=== PATIENT | female | born 1990 | race Caucasian/White ===

== ENCOUNTER 2024-09-05 02:59 | Emergency (ER) | payer MEDICAID, SELFPAY ==
[2024-09-05 03:00] VITALS: BMI 37.5
[2024-09-05 03:41] VITALS: BP 134/83; PULSE 113; RESP 18; TEMP 37.2; O2SAT 95
--- NOTE | 2024-09-05 03:57 | PD.EDRME ---
Rapid Medical Screening Exam RME Arrival date/time: 09/05/24 02:59 33M with history of DM (w/ last episode of DKA in 2018) and marijuana use presents to ED with several days of difficulty controlling BS, as well as dizziness and weakness. She states feels similar to DKA, but not quite there. Patient has also been getting over some URI. Chief Complaint: General Adult/Misc Complain Vital signs: Vital Signs Temperature 99.0 F 09/05/24 03:41 Pulse Rate 113 H 09/05/24 03:41 Respiratory Rate 18 09/05/24 03:41 Blood Pressure 134/83 H 09/05/24 03:41 Pulse Oximetry (%) 95 09/05/24 03:41 Oxygen Delivery Method Room Air 09/05/24 03:41
[2024-09-05 04:14] VITALS: BP 127/79; PULSE 114; RESP 18; TEMP 36.6; O2SAT 95
[2024-09-05 04:17] LABS: Collection Type, Urine Clean Catch
[2024-09-05 04:34] LABS: Amphetamine/Methamp Scrn,U Negative (Negative); Barbiturate Screen,Urine Negative (Negative); Benzodiazepines Screen,Urine Negative (Negative); Benzoylecgonine Screen, Ur Negative (Negative); Fentanyl Screen,Urine Negative (Negative); Opiate Screen,Urine Negative (Negative); THC Screen,Urine Negative (Negative)
[2024-09-05 04:40] LABS: Bilirubin,Urine Negative (Negative); Blood,Urine Negative (Negative); Clarity,Urine Clear (Clear/Hazy); Color,Urine Colorless (Lt Yel-Yel); Glucose, Urine 4+ (Negative); Ketones,Urine Negative (Negative); Leukocyte Esterase,Urine Negative (Negative); Nitrite,Urine Negative (Negative); PH,Urine 6.5 (5.0-7.0); Protein,Urine Negative (Neg - Trace); RBC,Urine 1 /hpf (0-3); Specific Gravity,Urine 1.026 (1.001-1.035); Squamous Epithelial Cell,Urine 1 /hpf (0-5); Urobilinogen,Urine Negative mg/dL (0.0-1.0); WBC,Urine < 1 /hpf (0-5)
[2024-09-05 04:53] LABS: HCG Qualitative,Urine Negative
[2024-09-05 05:19] LABS: Base Excess, Venous 3 (-3-3); Basophils % (Auto) 0 % (0-2.5); Eosinophils % (Auto) 0 % (0-10); Hematocrit 40.9 % (36.0-46.0); Hemoglobin 14.2 g/dL (12.0-16.0); Immature Granulocytes % (Auto) 2 % (0-0); Immature Granulocytes Auto 0.16 Thou/mm3 (0.00-0.00); Lymphocytes # (Auto) 3.5 Thou/mm3 (1.0-4.8); Lymphocytes % (Auto) 38 % (10-50); Mean Corpuscular HGB Conc 34.7 g/dl (31.0-37.0); Mean Corpuscular Hemoglobin 27.5 pg (25.0-35.0); Mean Corpuscular Volume 79 fL (80-100); Monocytes # (Auto) 0.9 Thou/mm3 (0.0-0.8); Monocytes % (Auto) 10 % (0-12); Neutrophils # (Auto) 4.7 Thou/mm3 (1.8-7.7); Neutrophils % (Auto) 51 % (37-80); Nucleated Red Blood Cell % 0 /100 WBC (0); O2 Saturation, Venous 86 % (96-97); PCO2, Venous 45 mmHg (36-56); PO2, Venous 48 mmHg (15-58); Platelet Count 220 Thou/mm3 (140-440); Red Blood Count 5.17 Miln/mm3 (4.00-5.20); White Blood Count 9.2 Thou/mm3 (3.6-11.0); pH, Venous 7.41 (7.33-7.66)
[2024-09-05 05:31] LABS: Beta Hydroxybutyrate 0.1 mmol/L (<0.6)
[2024-09-05 05:54] LABS: Alanine Aminotransferase 23 U/L (10-49); Albumin, Serum 4.6 gm/dL (3.5-5.0); Albumin/Globulin Ratio 1.6 (1.2-2.2); Alkaline Phosphatase 97 U/L (46-116); Anion Gap 8 (7-16); Aspartate Amino Transferase 13 U/L (0-34); BUN/Creatinine Ratio 14 Ratio (12-20); Bilirubin,Total 0.3 mg/dL (0.3-1.2); Blood Urea Nitrogen 13 mg/dL (9-23); Calcium 9.7 mg/dL (8.3-10.6); Calcium (Corrected) 9.7 mg/dL (8.5-10.1); Carbon Dioxide 25.4 mMol/L (20.0-31.0); Chloride 102 mMol/L (98-107); Creatinine (Component) 0.9 mg/dL (0.6-1.3); Estimated Creatinine Clearance 110.9 mL/min (>60); Globulin 2.9 gm/dL (2.3-3.5); Glucose 311 mg/dL (74-106); Lipase 45 U/L (12-53); Osmolality,Calculated 282 (275-295); Potassium 4.2 mMol/L (3.4-5.1); Sodium 135 mMol/L (136-145); Total Protein 7.5 gm/dL (5.7-8.2); eGFR > 60 See Note
[2024-09-05 08:19] VITALS: BP 167/93; PULSE 95; RESP 18; TEMP 36.8; O2SAT 98
--- NOTE | 2024-09-05 08:21 | PC.NURSE ---
Assumed care at this time, pt on stretcher, pt reports having a headache and bodyaches at this time, awaiting provider assessment. Call dumont in reach.
--- NOTE | 2024-09-05 08:29 | EDNOTE_ITS ---
ED General RME/HPI General Chief complaint: General Adult/Misc Complain Stated complaint: BLOOD SUGAR HIGH Time Seen by Provider: 09/05/24 08:22 Arrival date/time: 09/05/24 02:59 Limitations: no limitations RME / HPI RME / HPI narrative: 09/05/24 02:59 33M with history of DM (w/ last episode of DKA in 2018) and marijuana use presents to ED with several days of difficulty controlling BS, as well as dizziness and weakness. She states feels similar to DKA, but not quite there. Patient has also been getting over some URI. DR. COPELAND MAIN ED EVALUATION: 33 year old female, who is an insulin dependent diabetic presents to the Emergency Department having increasing difficulty controlling her blood sugars for the last week. She denies any recent illness. She notes, headache, and thirst as a result of her elevated blood sugars. She takes long acting insulin, 40 units in the morning and 65 units at nights. She also takes a sliding scale during the days. She denies any change in her diet, stress, or viability of insulin. She knows difficulty with controlling her blood sugar for quite some time where she is now in the process [facility] Fox. Her first intake visit is September 08. Related Data Home Medications ?Medication ?Instructions ?Recorded ?Confirmed albuterol sulfate 90 mcg/actuation 2 puff inhalation Q4H PRN SOB 12/21/20 03/20/22 aerosol inhaler insulin lispro 100 unit/mL 40 unit subcut TID 09/05/21 03/20/22 subcutaneous pen ([facility] SoloStar U-100 Insulin lispro) baclofen 20 mg tablet 20 mg PO BID 02/15/22 03/20/22 escitalopram oxalate 20 mg tablet 40 mg PO QDAY 02/15/22 03/20/22 (Lexapro) lamotrigine 25 mg tablet 25 tab PO QDAY 02/15/22 03/20/22 mirtazapine 15 mg tablet 15 mg PO HS 02/15/22 03/20/22 amlodipine 5 mg tablet 5 mg PO QDAY 02/21/22 03/20/22 sumatriptan succinate 100 mg tablet 100 mg PO QDAY PRN Headache 02/21/22 03/20/22 cetirizine 10 mg tablet 1 tab PO QDAY 03/20/22 03/20/22 gabapentin 800 mg tablet 800 mg PO TID 03/20/22 03/20/22 insulin glargine 100 unit/mL (3 1 ea subcut HS 03/20/22 03/20/22 mL) subcutaneous pen (Basaglar KwikPen U-100 Insulin) omeprazole 20 mg capsule,delayed 1 cap PO BID 03/20/22 03/20/22 release Previous Rx's ?Medication ?Instructions ?Recorded ibuprofen 800 mg tablet 800 mg PO TID PRN pain #30 tabs 12/19/21 insulin glargine [Basaglar KwikPen 80 unit subcut QAM 30 days #2,400 02/20/22 U-100 Insulin] units cephalexin 500 mg capsule 500 mg PO QID #21 caps 01/18/23 hydroxyzine pamoate 25 mg capsule 50 mg (2 x 25 mg) PO BID PRN 03/10/24 (Vistaril) anxiety #20 caps Allergies Allergy/AdvReac Type Severity Reaction Status Date / Time adhesive tape Allergy Severe Hives Verified 03/10/24 09:33 cefixime Allergy Severe Rash Verified 03/10/24 09:33 guaifenesin [From Mucinex] Allergy Severe throat Verified 03/10/24 09:33 swelling hydrocodone Allergy Severe Rash Verified 03/10/24 09:33 Penicillins Allergy Severe Rash Verified 03/10/24 09:33 prochlorperazine edisylate Allergy Severe STATES Verified 03/10/24 09:33 ALMOST HAVING SEIZURES promethazine HCl Allergy Severe STATES Verified 03/10/24 09:33 ALMOST HAD SEIZURE tramadol Allergy Severe Hives Verified 03/10/24 09:33 codeine Allergy Intermediate Rash Verified 03/10/24 09:33 metoclopramide AdvReac Severe Seizure Verified 03/10/24 09:33 Review of Systems Review of Systems Systems Reviewed: All systems reviewed, normal except as documented Narrative Review of Systems: GEN: No fever, no chills, no weight loss EYES: No discharge, no visual changes, no pain HEENT: No ear pain, no congestion, no sore throat PULM: No shortness of breath, no cough, no congestion CV: No chest pain, no dyspnea on exertion, no palpitations GI: No nausea, no vomiting, no diarrhea, no pain, no constipation : No frequency, no urgency and no dysuria MUSC/SKEL: No joint pain, no back pain SKIN: No rash PSYCH: No hallucinations, no depression HEME/LYMPH: No easy bleeding or bruising tendencies NEURO: No weakness, + headache Past Medical History Family History FAMILY HISTORY: Positive Family Psychiatric Problems and Family Respiratory Disorders; Negative Family Cardiac Disorders, Family Gastrointestinal Problems, Family Cancer, Family Surgery or Family Anesthesia Reaction Surgical History SURGICAL: Positive Eye Surgery, Oral Surgery, Abdominal Surgery, Hysterectomy, Tubal Ligation and Section; Negative Cardiac Surgery, Open Heart Surgery, Coronary Artery Bypass Graft, Valve Replacement, Vascular Surgery, Coronary Stent, Cardiac Catheterization, Pacemaker, Angiogram, Auto Implanted Cardiovert Defib, Carotid Endarterectomy, Endocrine Surgery, Thyroidectomy, Ear Surgery, Tympanostomy Tube, Nose Surgery, Tonsillectomy, Adenoidectomy, Cochlear Implant, Corneal Transplant, Throat Surgery, Tracheostomy, Gastric Bypass Surgery, Gastrostomy, Bowel Surgery, Nephrectomy, Transurethral Resection, Joint Replacement, Amputation, Open Reduction Internal Fixation, Arthroscopy, Neurologic Surgery, Brain Shunt, Mastectomy, Lumpectomy or Vasectomy Social History SMOKING STATUS: Never smoker SECOND HAND EXPOSURE: No SUBSTANCE USE: marijuana ALCOHOL: Never Past Medical History Comments PMH COMMENT: Insulin dependent diabetes ED Exam General Limitations: Present no limitations General appearance: Present alert and in no apparent distress Head Head exam: Present atraumatic Eye Eye exam: Present normal appearance, PERRL and EOMI ENT ENT exam: Present normal exam, normal oropharynx and mucous membranes moist Neck Neck exam: Present normal inspection, full ROM and trachea midline Chest Chest inspection: Present normal inspection and symmetric chest wall rise Respiratory Respiratory exam: Present normal lung sounds bilaterally Cardiovascular Cardiovascular exam: Present regular rate, normal rhythm and normal heart sounds Abdominal Exam Abdominal exam: Present soft and normal bowel sounds Extremities Exam Extremities exam: Present normal inspection and full ROM Back Exam Back exam: Present normal inspection and full ROM Neurological Exam Neurological exam: Present alert, oriented X3 and CN II-XII intact Psychiatric Psychiatric exam: Present normal affect and normal mood Skin Skin exam: Present warm, dry, intact and normal color Course Quality Measures none Orders Category Date Time Status Blood glucose [Bedside Blood Glucose] NOW Care 09/05/24 03:09 Completed Beta Hydroxybutyrate Stat Lab 09/05/24 05:13 Completed CBC Stat Lab 09/05/24 05:13 Completed CMP [Comprehensive Metabolic Panel] Stat Lab 09/05/24 05:13 Completed Drug Screen,Urine Stat Lab 09/05/24 04:00 Completed HCG Qualitative,Urine Stat Lab 09/05/24 04:00 Completed Lipase Stat Lab 09/05/24 05:13 Completed Urinalysis Stat Lab 09/05/24 04:00 Completed VBG [Venous Blood Gas] Stat Lab 09/05/24 05:13 Completed Acetaminophen Tab [Tylenol Tab] Med 09/05/24 08:23 Discontinued 650 mg PO X1 ONE DiphenhydrAMINE [Benadryl] Med 09/05/24 08:23 Discontinued 50 mg PO X1 ONE Insulin Regular Med 09/05/24 08:23 Discontinued 6 unit SC X1 ONE Reevaluation(s) Reevaluation #1: I discussed with her as she does not have DKA. She can receive some insulin, subcutaneous here, she is requesting insulin here before she leaves. Patient remains clinically stable throughout the emergency department visit. Re- assessment at the time of disposition demonstrates that the patient is in no acute distress. We reviewed all the results, analysis, and treatment plans. Patient is amenable to discharge. Strict return precautions were outlined. Patient was discharged in stable condition. Time: 08:50 Vital Signs Vital signs: Vital Signs Temperature 99.0 F 09/05/24 03:41 Pulse Rate 113 H 09/05/24 03:41 Respiratory Rate 18 09/05/24 03:41 Blood Pressure 134/83 H 09/05/24 03:41 Pulse Oximetry (%) 95 09/05/24 03:41 Oxygen Delivery Method Room Air 09/05/24 03:41 [facility] Patient data External records reviewed:: [facility] previous records (Reviewed last ED visit dated 04/15/24, discharged with the following: Hypoglycemia.) Clinical information provided by:: patient Social determinants that could affect healthcare access:: substance use (marijuana use) Patient has the following chronic illnesses:: Insulin dependent diabetes. How is presenting disease/condition affected by chronic disease/condition?: c aused by Evaluation data The following diagnostics were reviewed and interpreted by me:: lab results Lab and/or radiology exams considered but not ordered:: none Interpretation Summary: Hyperglycemia, blood glucose 311. Patient not in DKA. Medications Medications considered but not ordered:: none Medication administrations:: Medication Administration History Discontinued Medications Acetaminophen (Acetaminophen 325 Mg Tablet) 650 mg PO X1 ONE Stop: 09/05/24 08:24 Last Admin: 09/05/24 08:39 Dose: 650 mg Documented By: TM Diphenhydramine HCl (Diphenhydramine 25 Mg Capsule) 50 mg PO X1 ONE Stop: 09/05/24 08:24 Last Admin: 09/05/24 08:39 Dose: 50 mg Documented By: TM Insulin Human Regular (Insulin Hum Regular 1 Unit/0.01 Ml (Per Unit)) 6 unit SC X1 ONE Stop: 09/05/24 08:24 Last Admin: 09/05/24 08:39 Dose: 6 unit Documented By: NAHID Co-signed By: JOSH see above Consultations Consultation(s) initiated? (list below): No Diagnosis Differential Diagnosis ED Complaint MDM: Hyperglycemia, DKA, dehydration, electrolyte imbalance Most likely diagnosis given after review of the tests above:: Hyperglycemia Admission Indicated Admission indicated?: not indicated Explain why admission is indicated or not indicated:: Patient has no emergent abnormalities on his studies and can be managed on an outpatient basis. Admission Request Was there a request for admission?: No Disposition Plan Disposition Plan: Discharge Discharge Attestation Discharge Attestation: The patient and all family members were given an opportunity to ask questions and understood the discharge instructions. Discharge instructions specifically effects, indications for sooner follow up or return to the emergency department, and the expected course of current diagnosis. Patient condition: Stable Medical Decision Making MDM Narrative MDM Narrative: Jessica Bradley am scribing for and in the presence of Dr. Copeland. Differential Diagnosis Differential Diagnosis: Hyperglycemia, DKA, dehydration, electrolyte imbalance Lab Data 09/05/24 05:13 09/05/24 05:13 Labs: Lab Results 09/05/24 09/05/24 Range/Units 04:00 05:13 WBC 9.2 (3.6-11.0) Thou/mm3 RBC 5.17 (4.00-5.20) Miln/mm3 Hgb 14.2 (12.0-16.0) g/dL Hct 40.9 (36.0-46.0) % MCV 79 L (80-100) fL MCH 27.5 (25.0-35.0) pg MCHC 34.7 (31.0-37.0) g/dl RDW Std Deviation 37.0 (36.4-46.3) fL Plt Count 220 (140-440) Thou/mm3 Neut % (Auto) 51 (37-80) % Lymph % (Auto) 38 (10-50) % [place] % (Auto) 10 (0-12) % Eos % (Auto) 0 (0-10) % Baso % (Auto) 0 (0-2.5) % Neut # (Auto) 4.7 (1.8-7.7) Thou/mm3 Lymph # (Auto) 3.5 (1.0-4.8) Thou/mm3 [place] # (Auto) 0.9 H (0.0-0.8) Thou/mm3 Eos # (Auto) 0.0 (0.0-0.5) Thou/mm3 Baso # (Auto) 0.0 (0.0-0.2) Thou/mm3 Immature Gran # (Auto) 0.16 H (0.00-0.00) Thou/mm3 Absolute Nucleated RBC 0.00 (0.00-0.00) Thou/mm3 Immature Gran % 2 H (0-0) % Nucleated RBC % 0 (0) /100 WBC VBG pH 7.41 (7.33-7.66) VBG pCO2 45 (36-56) mmHg VBG pO2 48 (15-58) mmHg VBG O2 Sat ([place]) 86 L (96-97) % VBG Base Excess 3 (-3-3) Sodium 135 L (136-145) mMol/L Potassium 4.2 (3.4-5.1) mMol/L Chloride 102 (98-107) mMol/L Carbon Dioxide 25.4 (20.0-31.0) mMol/L Anion Gap 8 (7-16) BUN 13 (9-23) mg/dL Creatinine 0.9 (0.6-1.3) mg/dL Estim Creat Clear Calc 110.9 (>60) mL/min eGFR > 60 (60 - ) See Note BUN/Creatinine Ratio 14 (12-20) Ratio Glucose 311 H (74-106) mg/dL Calculated Osmolality 282 (275-295) Calcium 9.7 (8.3-10.6) mg/dL Corrected Calcium 9.7 (8.5-10.1) mg/dL Total Bilirubin 0.3 (0.3-1.2) mg/dL AST 13 (0-34) U/L ALT 23 (10-49) U/L Alkaline Phosphatase 97 (46-116) U/L Total Protein 7.5 (5.7-8.2) gm/dL Albumin 4.6 (3.5-5.0) gm/dL Globulin 2.9 (2.3-3.5) gm/dL Albumin/Globulin Ratio 1.6 (1.2-2.2) Lipase 45 (12-53) U/L Beta-Hydroxybutyrate/Acetoacetate 0.1 (<0.6) mmol/L Ur Collection Type Clean Catch Urine Color Colorless A (Lt Yel-Yel) Urine Clarity Clear (Clear/Hazy) Urine pH 6.5 (5.0-7.0) Ur Specific [place] 1.026 (1.001-1.035) Urine Protein Negative (Neg - Trace) Urine Glucose (UA) 4+ A (Negative) Urine Ketones Negative (Negative) Urine Blood Negative (Negative) Urine Nitrite Negative (Negative) Urine Bilirubin Negative (Negative) Urine Urobilinogen (Auto) Negative (0.0-1.0) mg/dL Ur Leukocyte Esterase Negative (Negative) Urine RBC 1 (0-3) /hpf Urine WBC < 1 (0-5) /hpf Ur Squamous Epith Cells 1 (0-5) /hpf Urine Bacteria None (None) Urine HCG, Qual Negative Urine Opiates Screen Negative (Negative) Urine Fentanyl Screen Negative (Negative) Ur Barbiturates Screen Negative (Negative) U Amphetamin/Meth Scrn Negative (Negative) U Benzodiazepines Scrn Negative (Negative) U Cocaine Metab Screen Negative (Negative) U Marijuana (THC) Screen Negative (Negative) Discharge Plan Plan Patient Disposition: HOME (Self Care) Prescriptions/Referrals Prescriptions/Med Rec: No Action ibuprofen 800 mg tablet 800 mg PO TID PRN (Reason: pain) Qty: 30 0RF sumatriptan succinate 100 mg tablet 100 mg PO QDAY PRN (Reason: Headache) amlodipine 5 mg Tablet 5 mg PO QDAY albuterol sulfate 90 mcg/actuation Hfa Aerosol Inhaler 2 puff INHALATION Q4H PRN (Reason: SOB) insulin lispro [[employer] SoloStar U-100 Insulin] 100 unit/mL Insulin Pen 40 unit SUBCUT TID lamotrigine 25 mg tablet 25 tab PO QDAY Patient Comments: TAKE 1 TABLET BY MOUTH EVERY DAY baclofen 20 mg Tablet 20 mg PO BID mirtazapine 15 mg Tablet 15 mg PO HS escitalopram oxalate [Lexapro] 20 mg Tablet 40 mg PO QDAY Insulin Glargine [Basaglar Kwikpen U-100 Insulin] 80 unit subcut QAM 30 Days Qty: 2400 1RF cetirizine 10 mg tablet 1 tab PO QDAY gabapentin 800 mg tablet 800 mg PO TID omeprazole 20 mg capsule,delayed release(DR/EC) 1 cap PO BID Patient Comments: TAKE 1 CAPSULE BY MOUTH TWICE A DAY insulin glargine [Basaglar KwikPen U-100 Insulin] 100 unit/mL (3 mL) insulin pen 1 ea SUBCUT HS Rx Instructions: 57 UNITS AT NIGHT cephalexin 500 mg capsule 500 mg PO QID Qty: 21 0RF Rx Instructions: Patient has been on cephalexin in the past. hydroxyzine pamoate [Vistaril] 25 mg capsule 50 mg PO BID PRN (Reason: anxiety) Qty: 20 0RF Referrals: Nash Hamilton MD [Primary Care Provider] - In 1 week Problem List Clinical Impression: Hyperglycemia Patient/Caregiver Discharge Instructions Education Materials: ED Diabetes with High Blood Sugar Additional Instructions: Drink plenty of water today and through the weekend. Continue with your normal insulin regimen through the weekend. You can follow-up with Dr. Hamilton as scheduled on Sunday. Feel free return to the emergency department sooner if symptoms worsen or if you notice any new, concerning issues. Print Language: Panamanian Stand Alone Forms: [facility] Award Info., Patient Portal Info Letter
[2024-09-05] MEDS: DiphenhydrAMINE 25 MG CAPSULE 50 MG PO (08:39)
[2024-09-05] MEDS: ACETAMINOPHEN 325 MG TABLET 650 MG PO (08:39)
[2024-09-05] MEDS: INSULIN HUM REGULAR 1 UNIT/0.01 ML (PER UNIT) 6 UNIT SC (08:39)
== END 2024-09-05 08:54 | disposition home or self-care (01) ==
PROVIDERS: Physician Assistant; Emergency Provider Emergency Medicine; PCP Family Medicine
DX: E11.65 Type 2 diabetes mellitus with hyperglycemia (principal)
CPT/HCPCS: 36415; 80053; 80307; 81001; 81025; 82010; 82803; 83690; 85025; 96372; 99283; J1815; A9270

== ENCOUNTER 2024-09-23 13:04 | Emergency (ER) | payer MEDICAID, SELFPAY ==
[2024-09-23 13:05] VITALS: BMI 37.5
[2024-09-23 13:44] VITALS: BP 130/84; PULSE 100; RESP 18; TEMP 36.9; O2SAT 99
--- NOTE | 2024-09-23 14:00 | EDNOTE_ITS ---
<Statement entered by Shruti Conrad MD - 09/25/24 15:28> As co-signing physician, I was present and available for consult prn. I concur with the plan and care as documented by the midlevel provider. ED Anxiety RME/HPI General Chief Complaint: Anxiety Stated Complaint: WANTS MEDS FOR ANXIETY Time Seen by Provider: 09/23/24 13:57 Arrival date/time: 09/23/24 13:04 33-year-old female well-known to me presents to the emergency department requesting medication for anxiety patient reports needs him to take the edge off patient reports that typically she takes Xanax 2 mg 3 times a day but does not have a prescription is waiting for prior authorization for new prescription Limitations: no limitations Related Data Home Medications ?Medication ?Instructions ?Recorded ?Confirmed albuterol sulfate 90 mcg/actuation 2 puff inhalation Q4H PRN SOB 12/21/20 03/20/22 aerosol inhaler insulin lispro 100 unit/mL 40 unit subcut TID 09/05/21 03/20/22 subcutaneous pen (Admelog SoloStar U-100 Insulin lispro) baclofen 20 mg tablet 20 mg PO BID 02/15/22 03/20/22 escitalopram oxalate 20 mg tablet 40 mg PO QDAY 02/15/22 03/20/22 (Lexapro) lamotrigine 25 mg tablet 25 tab PO QDAY 02/15/22 03/20/22 mirtazapine 15 mg tablet 15 mg PO HS 02/15/22 03/20/22 amlodipine 5 mg tablet 5 mg PO QDAY 02/21/22 03/20/22 sumatriptan succinate 100 mg tablet 100 mg PO QDAY PRN Headache 02/21/22 03/20/22 cetirizine 10 mg tablet 1 tab PO QDAY 03/20/22 03/20/22 gabapentin 800 mg tablet 800 mg PO TID 03/20/22 03/20/22 insulin glargine 100 unit/mL (3 1 ea subcut HS 03/20/22 03/20/22 mL) subcutaneous pen (Basaglar KwikPen U-100 Insulin) omeprazole 20 mg capsule,delayed 1 cap PO BID 03/20/22 03/20/22 release Previous Rx's ?Medication ?Instructions ?Recorded ibuprofen 800 mg tablet 800 mg PO TID PRN pain #30 tabs 12/19/21 insulin glargine [Basaglar KwikPen 80 unit subcut QAM 30 days #2,400 02/20/22 U-100 Insulin] units cephalexin 500 mg capsule 500 mg PO QID #21 caps 01/18/23 hydroxyzine pamoate 25 mg capsule 50 mg (2 x 25 mg) PO BID PRN 03/10/24 (Vistaril) anxiety #20 caps Allergies Allergy/AdvReac Type Severity Reaction Status Date / Time adhesive tape Allergy Severe Hives Verified 09/23/24 13:07 cefixime Allergy Severe Rash Verified 09/23/24 13:07 guaifenesin [From Mucinex] Allergy Severe throat Verified 09/23/24 13:07 swelling hydrocodone Allergy Severe Rash Verified 09/23/24 13:07 Penicillins Allergy Severe Rash Verified 09/23/24 13:07 prochlorperazine edisylate Allergy Severe STATES Verified 09/23/24 13:07 ALMOST HAVING SEIZURES promethazine HCl Allergy Severe STATES Verified 09/23/24 13:07 ALMOST HAD SEIZURE tramadol Allergy Severe Hives Verified 09/23/24 13:07 codeine Allergy Intermediate Rash Verified 09/23/24 13:07 metoclopramide AdvReac Severe Seizure Verified 09/23/24 13:07 Review of Systems Review of Systems Systems Reviewed: All systems reviewed, normal except as documented Constitutional Constitutional: Reports system reviewed and no additional complaints, except as documented, Denies fever(s) and Denies headache(s) Eyes Eyes: Reports system reviewed and no additional complaints, except as documented and Denies blurry vision ENT Ears, Nose, Mouth, and Throat: Reports system reviewed and no additional complaints, except as documented, Denies headache(s), Denies nasal congestion and Denies nasal discharge Cardiovascular Cardiovascular: Reports system reviewed and no additional complaints, except as documented, Denies chest pain and Denies dyspnea Respiratory Respiratory: Reports system reviewed and no additional complaints, except as documented, Denies chest congestion, Denies cough and Denies dyspnea Gastrointestinal Gastrointestinal: Reports system reviewed and no additional complaints, except as documented and Denies abdominal pain Integumentary/Breasts Skin/Breast: Reports system reviewed and no additional complaints, except as documented and Denies rash Neurologic Neurologic: Reports system reviewed and no additional complaints, except as documented, Reports as per HPI and Denies headache(s) Psychiatric Psychiatric: Reports system reviewed and no additional complaints, except as documented and Reports anxiety Past Medical History Past Medical History NEUROLOGIC: Positive Neurological Disorders, Seizures, Peripheral Neuropathy and Migraine; Negative Cerebrovascular Accident, Transient Ischemic Attacks (TIA), Dementia, Alzheimer's Disease, Parkinson's Disease, Brain Tumor, Meningitis, Epilepsy, Cerebral Palsy, Amyotrophic Lateral Sclerosis (ALS/Allison Gehrig's), Guillain-[place] Syndrome, Spina Bifida, Paralysis, Reyes's Palsy, Subdural Hematoma, Head Trauma, Spinal Cord Injury or Traumatic Brain Injury CARDIAC: Positive Cardiac Disorders and Hypertension; Negative Myocardial Infarction, Cardiac Arrhythmia, Atrial Fibrillation, Angina, Heart Murmur, Coronary Artery Disease, Atherosclerotic Heart Disease, Peripheral Vascular Disease, Hypercholesterolemia, Aneurysm, Congestive Heart Failure, Congenital Heart Disease, Valvular Heart Disease, Rheumatic Fever, Cardiomyopathy, Edema, Pericarditis, Cellulitis, Deep Vein Thrombosis, Hypotension or Varicose Veins RESPIRATORY: Positive Asthma, Bronchitis, Pneumonia and Pulmonary Embolism; Negative Chronic Obstructive Pulmonary Disease (COPD), Emphysema, Pulmonary Fibrosis, Cystic Fibrosis, Tuberculosis, Pulmonary Edema or Sleep Apnea GASTROINTESTINAL: Positive Gastrointestinal Disorders, Colitis, Hiatal Hernia, Hemorrhoids, Gastroesophageal Reflux Disease and Obesity; Negative Hepatitis, Cirrhosis, Pancreatitis, Celiac Disease, Gall Bladder Disease, Gastrointestinal Bleed, Esophageal Varices, King's Esophagus, Ulcerative Colitis, Diverticulitis, Diverticulosis, Ulcer, Colorectal Cancer, Irritable Bowel, Crohn's Disease or Obstructive Bowel GENITOURINARY: Positive Genitourinary Disorders; Negative Renal Disease, Kidney Stones, Polycystic Kidney Disease, Neurogenic Bladder, Inguinal Hernia, Dialysis or Benign Prostatic Hyperplasia REPRODUCTIVE: Positive Endometriosis and Previous Pregnancies; Negative Breast Cancer, Genital Herpes, Gonorrhea, Pelvic Inflammatory Disease, Syphilis or Uterine Prolapse MUSCULOSKELETAL: Positive Musculoskeletal Disorders, Carpal Tunnel Syndrome and Fractures; Negative Muscular Dystrophy, Myasthenia Gravis, Marfan's Syndrome, Bone Cancer, Arthritis, Rheumatoid Arthritis, Osteoporosis, Degenerative Disk Disease, Gout, Scoliosis, Fibromyalgia, Degenerative Joint Disease, Osteomyelitis or Poliovirus ENT: Negative Cataracts, Glaucoma, Blind, Retinal Detachment, Macular Degeneration, Ear Infection, Deafness, Head Trauma or Eye Prosthesis ENDOCRINE: Positive Endocrine Disorders, Diabetes Mellitus Type 2 and Hypoglycemia; Negative Diabetes Mellitus Type 1, Winfield's Syndrome, [place]ew[place]'s Disease, Hyperthyroidism, Hypothyroidism, Parathyroid Disease, Pituitary Disease, Systemic Lupus Erythematosus, Syndrome of Inappropriate Antidiuretic Hormone (SIADH), Adrenal Disease or Graves' Disease HEMATOLOGIC: Positive Clotting Problems; Negative Blood Disorders, Anemia, Leukemia, Hemophilia, Thalassemia or Sickle Cell Disease PSYCHO/SOCIAL: Positive Depression, Anxiety and Post Traumatic Stress Disorder; Negative Psychiatric Problems, Schizophrenia, Recreational Drug Use, Bipolar Disorder, Behavior Problems, Self-Mutilation, Attention Deficit Disorder, Attention Deficit Hyperactivity Disorder, Depression or Eating Disorder OTHER HISTORY: Positive Hospitalization, Falls and Chicken Pox; Negative Autoimmune Disease, Down Syndrome, Autism, Developmental Delay, Shingles, Blood Transfusions, Blood Transfusion Reaction, Anesthesia Reactions, Organ Transplant, Chemotherapy, Radiation Therapy, Hyperbaric Therapy, MRSA, VRSA, Vancomycin-Resistant Enterococci, Human Immunodeficiency Virus (HIV), Measles, Mumps, Rubella ([place]ian Measles), Pertussis, Clostridium Difficile, Cancer, Breast Cancer, Cervical Cancer, Colorectal Cancer, Lung Cancer or Ovarian Cancer Family History FAMILY HISTORY: Positive Family Psychiatric Problems and Family Respiratory D isorders; Negative Family Cardiac Disorders, Family Gastrointestinal Problems, Family Cancer, Family Surgery or Family Anesthesia Reaction Surgical History SURGICAL: Positive Eye Surgery, Oral Surgery, Abdominal Surgery, Hysterectomy, Tubal Ligation and Section; Negative Cardiac Surgery, Open Heart Surgery, Coronary Artery Bypass Graft, Valve Replacement, Vascular Surgery, Coronary Stent, Cardiac Catheterization, Pacemaker, Angiogram, Auto Implanted Cardiovert Defib, Carotid Endarterectomy, Endocrine Surgery, Thyroidectomy, Ear Surgery, Tympanostomy Tube, Nose Surgery, Tonsillectomy, Adenoidectomy, Cochlear Implant, Corneal Transplant, Throat Surgery, Tracheostomy, Gastric Bypass Surgery, Gastrostomy, Bowel Surgery, Nephrectomy, Transurethral Resection, Joint Replacement, Amputation, Open Reduction Internal Fixation, Arthroscopy, Neurologic Surgery, Brain Shunt, Mastectomy, Lumpectomy, Vasectomy or Organ Transplant Social History SMOKING STATUS: Never smoker SECOND HAND EXPOSURE: No SUBSTANCE USE: marijuana ED Exam General Limitations: Present no limitations General appearance: Present alert and in no apparent distress Head Head exam: Present atraumatic Eye Eye exam: Present normal appearance, PERRL and EOMI ENT ENT exam: Present normal exam, normal oropharynx and mucous membranes moist Neck Neck exam: Present normal inspection, full ROM and trachea midline Chest Chest inspection: Present normal inspection and symmetric chest wall rise Respiratory Respiratory exam: Present normal lung sounds bilaterally Cardiovascular Cardiovascular exam: Present regular rate, normal rhythm and normal heart sounds Abdominal Exam Abdominal exam: Present soft and normal bowel sounds Extremities Exam Extremities exam: Present normal inspection and full ROM Back Exam Back exam: Present normal inspection and full ROM Neurological Exam Neurological exam: Present alert, oriented X3, CN II-XII intact, normal gait and reflexes normal; Absent motor sensory deficit Psychiatric Psychiatric exam: Present normal affect and normal mood; Absent agitated, anxious, flat affect, manic, homicidal ideation or suicidal ideation Skin Skin exam: Present warm, dry, intact and normal color Course Quality Measures none Vital Signs Vital signs: Vital Signs Temperature 98.5 F 09/23/24 13:44 Pulse Rate 100 09/23/24 13:44 Respiratory Rate 18 09/23/24 13:44 Blood Pressure 130/84 09/23/24 13:44 Pulse Oximetry (%) 99 09/23/24 13:44 Oxygen Delivery Method Room Air 09/23/24 13:44 O2 saturation 99% room air within normal limits Anxiety MDM Narrative MDM Narrative: 33-year-old female well-known to me presents to the emergency department requesting medication for anxiety patient reports needs him to take the edge off patient reports that typically she takes Xanax 2 mg 3 times a day but does not have a prescription is waiting for prior authorization for new prescription Patient has mild anxiety at this time patient assures me she is not suicidal homicidal Patient given Xanax here and discharged home Patient struck to follow-up with PCP in order to follow-up on her prior authorization for her medication Patient data External records reviewed:: [facility] previous records Clinical information provided by:: patient Social determinants that could affect healthcare access:: mental health Patient has the following chronic illnesses:: See history How is presenting disease/condition affected by chronic disease/condition?: caused by Evaluation data The following diagnostics were reviewed and interpreted by me:: other (specify) (N/A) Lab and/or radiology exams considered but not ordered:: Consider not ordered Interpretation Summary: N/A Medications / Prescriptions Medications or Prescriptions considered but not ordered:: Given Medication administrations:: Given Consultations Consultation(s) initiated? (list below): No Diagnosis Differential diagnosis anxiety: hyperventilation, panic disorder and acute anxiety Most likely diagnosis given after review of the tests above:: Anxiety disorder Admission Indicated Admission indicated?: not indicated Admission Request Was there a request for admission?: No Disposition Plan Disposition Plan: Discharge Discharge Attestation Discharge Attestation: The patient and all family members were given an opportunity to ask questions and understood the discharge instructions. Discharge instructions specifically effects, indications for sooner follow up or return to the emergency department, and the expected course of current diagnosis. Patient condition: Stable Discharge Plan Plan Patient Disposition: HOME (Self Care) Disposition Comment: Stable Prescriptions/Referrals Prescriptions/Med Rec: No Action ibuprofen 800 mg tablet 800 mg PO TID PRN (Reason: pain) Qty: 30 0RF sumatriptan succinate 100 mg tablet 100 mg PO QDAY PRN (Reason: Headache) amlodipine 5 mg Tablet 5 mg PO QDAY albuterol sulfate 90 mcg/actuation Hfa Aerosol Inhaler 2 puff INHALATION Q4H PRN (Reason: SOB) insulin lispro [Admelog SoloStar U-100 Insulin] 100 unit/mL Insulin Pen 40 unit SUBCUT TID lamotrigine 25 mg tablet 25 tab PO QDAY Patient Comments: TAKE 1 TABLET BY MOUTH EVERY DAY baclofen 20 mg Tablet 20 mg PO BID mirtazapine 15 mg Tablet 15 mg PO HS escitalopram oxalate [Lexapro] 20 mg Tablet 40 mg PO QDAY Insulin Glargine [Basaglar Kwikpen U-100 Insulin] 80 unit subcut QAM 30 Days Qty: 2400 1RF cetirizine 10 mg tablet 1 tab PO QDAY gabapentin 800 mg tablet 800 mg PO TID omeprazole 20 mg capsule,delayed release(DR/EC) 1 cap PO BID Patient Comments: TAKE 1 CAPSULE BY MOUTH TWICE A DAY insulin glargine [Basaglar KwikPen U-100 Insulin] 100 unit/mL (3 mL) insulin pen 1 ea SUBCUT HS Rx Instructions: 57 UNITS AT NIGHT cephalexin 500 mg capsule 500 mg PO QID Qty: 21 0RF Rx Instructions: Patient has been on cephalexin in the past. hydroxyzine pamoate [Vistaril] 25 mg capsule 50 mg PO BID PRN (Reason: anxiety) Qty: 20 0RF Problem List Clinical Impression: Anxiety disorder Patient/Caregiver Discharge Instructions Education Materials: ED Anxiety Reaction Additional Instructions: Please follow up with your primary care doctor in the next 24-48hrs for any worsening symptoms return here immediately Please follow with your PCP for your regular psychiatric medication Print Language: New Zealander Stand Alone Forms: [facility] Award Info., Patient Portal Info Letter PA/EVIDENCE TECHNICIAN Supervising Physician PA/EVIDENCE TECHNICIAN Supervising Physician: Dr. CONRAD
[2024-09-23] MEDS: ALPRazoLAM 0.25 MG TABLET 2 MG PO (14:54)
== END 2024-09-23 14:57 | disposition home or self-care (01) ==
PROVIDERS: Emergency Provider Emergency Medicine; PCP Family Medicine
DX: F41.9 Anxiety disorder, unspecified (principal)
CPT/HCPCS: 99282; A9270

== ENCOUNTER 2024-10-01 20:25 | Emergency (ER) | payer MEDICAID, SELFPAY ==
[2024-10-01 20:33] VITALS: BP 134/70; PULSE 88; RESP 18; TEMP 37.1; O2SAT 99; BMI 36.5
--- NOTE | 2024-10-01 20:33 | XR_ITS ---
Examination: Ribs, left, with PA chest, 5 views Technique: Chest PA, RIBS AP, RPO, LPO, AP coned lower ribs 5 views Exam date and time: October 01, 20242037 hrs. Indications: Patient fell today with injury to the chest, left chest and rib pain Findings: Mild prominence left ventricle Parenchymal disease in the lingular segment obscuring detail left cardiac contour No pneumothorax No acute rib fractures Impression: No pneumothorax Recommend lateral chest view follow-up to exclude parenchymal disease in the lingular segment left upper lobe
--- NOTE | 2024-10-01 20:33 | XR_ITS ---
Examination: CT abdomen and pelvis without contrast. Coronal 3-D reconstructions. Sagittal 2-D reconstructions. Date and time of exam:October 01, 2024 2116 hrs. Comparison January 18, 2023 Indications: Patient fell today with injury to the abdomen, abdomen pain CTDI: vol (mGy): 12.61 DLP: (mGycm): 872 Technique: Axial images of the abdomen have been obtained, 3 mm slice thickness Intravenous contrast material has not been administered. Low dose protocols were performed. One or more of the following dose reduction techniques were used; automated exposure control, adjustment of the mA and/or KV according to patient size, use of iterative reconstruction technique. Findings: No pneumothorax Minimal pericardial effusion No liver splenic or renal laceration No perinephric hematoma No gallstones No pancreatic or adrenal mass Abdominal aorta intact, no free blood in the abdomen Suspicious for soft tissue contusion anterior right abdominal wall, axial image 128 Negative for pneumoperitoneum Normal appendix No bowel obstruction No diverticulitis Urinary bladder intact Absent uterus no lumbar vertebral bodies sacral segments hips appear intact Impression: No abdominal parenchymal laceration No perinephric hematoma Abdominal aorta intact No free blood in the abdomen or pelvis Mild anterior abdominal wall soft tissue contusion
--- NOTE | 2024-10-01 20:33 | PD.EDRME ---
Rapid Medical Screening Exam RME Arrival date/time: 10/01/24 20:25 34-year-old female with a history of type 1 diabetes presents to the emergency room with a chief complaint of abdominal distention, tenderness and left-sided rib pain after a fall that occurred this morning. Patient states the center for she has been having abdominal pain and abdominal distention. Patient also states she has nauseous and has vomited multiple times today. I have greeted and performed a focused initial assessment of this patient. A comprehensive ED assessment and evaluation of the patient, analysis of all test results, and completion of the medical decision making process will be conducted by additional ED providers. Chief Complaint: Abdominal Pain Time Seen by Provider: 10/01/24 20:33 Vital signs reviewed by provider: Yes
[2024-10-01] MEDS: ONDANSETRON ODT 4 MG TABRAP PO (21:08)
[2024-10-01 21:26] LABS: Basophils % (Auto) 0 % (0-2.5); Eosinophils % (Auto) 0 % (0-10); Hematocrit 38.6 % (36.0-46.0); Hemoglobin 13.5 g/dL (12.0-16.0); Immature Granulocytes % (Auto) 1 % (0-0); Immature Granulocytes Auto 0.06 Thou/mm3 (0.00-0.00); Lymphocytes # (Auto) 1.8 Thou/mm3 (1.0-4.8); Lymphocytes % (Auto) 22 % (10-50); Mean Corpuscular Hemoglobin 28.1 pg (25.0-35.0); Mean Corpuscular Volume 80 fL (80-100); Monocytes # (Auto) 0.7 Thou/mm3 (0.0-0.8); Monocytes % (Auto) 9 % (0-12); Neutrophils # (Auto) 5.5 Thou/mm3 (1.8-7.7); Neutrophils % (Auto) 68 % (37-80); Nucleated Red Blood Cell % 0 /100 WBC (0); Platelet Count 260 Thou/mm3 (140-440); RDW Standard Deviation 40.1 fL (36.4-46.3)
[2024-10-01 21:31] LABS: Collection Type, Urine Clean Catch
[2024-10-01 21:45] LABS: HCG Qualitative,Urine Negative
[2024-10-01 21:49] LABS: Alanine Aminotransferase 33 U/L (10-49); Albumin, Serum 4.7 gm/dL (3.5-5.0); Albumin/Globulin Ratio 1.6 (1.2-2.2); Alkaline Phosphatase 107 U/L (46-116); Anion Gap 11 (7-16); Aspartate Amino Transferase 26 U/L (0-34); BUN/Creatinine Ratio 14 Ratio (12-20); Bilirubin,Total 0.5 mg/dL (0.3-1.2); Blood Urea Nitrogen 15 mg/dL (9-23); Calcium 10.2 mg/dL (8.3-10.6); Calcium (Corrected) 10.2 mg/dL (8.5-10.1); Carbon Dioxide 22.9 mMol/L (20.0-31.0); Chloride 103 mMol/L (98-107); Creatinine (Component) 1.1 mg/dL (0.6-1.3); Estimated Creatinine Clearance 91.4 mL/min (>60); Lipase 30 U/L (12-53); Potassium 4.6 mMol/L (3.4-5.1); Sodium 137 mMol/L (136-145); Total Protein 7.7 gm/dL (5.7-8.2); eGFR > 60 See Note
[2024-10-01 21:49] LABS: Bacteria,Urine Rare; Bilirubin,Urine Negative (Negative); Blood,Urine Negative (Negative); Clarity,Urine Clear (Clear/Hazy); Color,Urine Colorless (Lt Yel-Yel); Glucose, Urine 4+ (Negative); Ketones,Urine Negative (Negative); Leukocyte Esterase,Urine Negative (Negative); Nitrite,Urine Negative (Negative); PH,Urine 5.5 (5.0-7.0); Protein,Urine Negative (Neg - Trace); RBC,Urine 1 /hpf (0-3); Specific Gravity,Urine 1.028 (1.001-1.035); Squamous Epithelial Cell,Urine 1 /hpf (0-5); Urobilinogen,Urine Negative mg/dL (0.0-1.0); WBC,Urine 1 /hpf (0-5)
[2024-10-01 22:09] LABS: Osmolality,Calculated 298 (275-295)
[2024-10-01 22:13] LABS: Glucose 523 mg/dL (74-106)
[2024-10-01 23:17] LABS: Beta Hydroxybutyrate 0.1 mmol/L (<0.6)
--- NOTE | 2024-10-02 00:32 | PC.NURSE ---
PT IN [facility] GAVE 65UNITS OF BASAGLAR AT 0000. AND DID NOT NOTIFY STAFF UNTIL BROUGHT BACK FOR ASSESSMENT BY NURSE.
[2024-10-02 00:48] VITALS: BP 149/86; PULSE 108; RESP 18; TEMP 36.7; O2SAT 97
--- NOTE | 2024-10-02 00:58 | PD.EDABDPN ---
ED Abdominal Pain RME/HPI General Chief Complaint: Abdominal Pain Stated complaint: tripped and fell in Abdomen Time seen by provider: 10/01/24 20:33 Arrival date/time: 10/01/24 20:25 Limitations: no limitations RME / HPI RME / HPI narrative: 10/01/24 20:25 34-year-old female with a history of type 1 diabetes presents to the emergency room with a chief complaint of abdominal distention, tenderness and left-sided rib pain after a fall that occurred this morning. Patient states the center for she has been having abdominal pain and abdominal distention. Patient also states she has nauseous and has vomited multiple times today. I have greeted and performed a focused initial assessment of this patient. A comprehensive ED assessment and evaluation of the patient, analysis of all test results, and completion of the medical decision making process will be conducted by additional ED providers. Dr. Tavrea's Main ED Evaluation: 34yo female with a history of DMI presents to the ED s/p fall this morning. Patient states she was getting out of her bed when she tripped over her shoe and fell forward on her abdomen. She states she hit her knee, but is more concerned over her abdomen due to having moderate generalized abdominal pain, reporting it feels hard , and left rib pain. She denies any head strikes or LOC. She denies any N/V, headache, neck pain or any other associted symptoms. Patient took ibuprofen this morning. Related Data Home Medications ?Medication ?Instructions ?Recorded ?Confirmed albuterol sulfate 90 mcg/actuation 2 puff inhalation Q4H PRN SOB 12/21/20 03/20/22 aerosol inhaler insulin lispro 100 unit/mL 40 unit subcut TID 09/05/21 03/20/22 [facility] Insulin lispro) baclofen 20 mg tablet 20 mg PO BID 02/15/22 03/20/22 escitalopram oxalate 20 mg tablet 40 mg PO QDAY 02/15/22 03/20/22 (Lexapro) lamotrigine 25 mg tablet 25 tab PO QDAY 02/15/22 03/20/22 mirtazapine 15 mg tablet 15 mg PO HS 02/15/22 03/20/22 amlodipine 5 mg tablet 5 mg PO QDAY 02/21/22 03/20/22 sumatriptan succinate 100 mg tablet 100 mg PO QDAY PRN Headache 02/21/22 03/20/22 cetirizine 10 mg tablet 1 tab PO QDAY 03/20/22 03/20/22 gabapentin 800 mg tablet 800 mg PO TID 03/20/22 03/20/22 insulin glargine 100 unit/mL (3 1 ea subcut HS 03/20/22 03/20/22 mL) subcutaneous pen (Basaglar KwikPen U-100 Insulin) omeprazole 20 mg capsule,delayed 1 cap PO BID 03/20/22 03/20/22 release Previous Rx's ?Medication ?Instructions ?Recorded ibuprofen 800 mg tablet 800 mg PO TID PRN pain #30 tabs 12/19/21 insulin glargine [Basaglar KwikPen 80 unit subcut QAM 30 days #2,400 02/20/22 U-100 Insulin] units cephalexin 500 mg capsule 500 mg PO QID #21 caps 01/18/23 hydroxyzine pamoate 25 mg capsule 50 mg (2 x 25 mg) PO BID PRN 03/10/24 (Vistaril) anxiety #20 caps Allergies Allergy/AdvReac Type Severity Reaction Status Date / Time adhesive tape Allergy Severe Hives Verified 09/23/24 13:07 cefixime Allergy Severe Rash Verified 09/23/24 13:07 guaifenesin [From Mucinex] Allergy Severe throat Verified 09/23/24 13:07 swelling hydrocodone Allergy Severe Rash Verified 09/23/24 13:07 Penicillins Allergy Severe Rash Verified 09/23/24 13:07 prochlorperazine edisylate Allergy Severe STATES Verified 09/23/24 13:07 ALMOST HAVING SEIZURES promethazine HCl Allergy Severe STATES Verified 09/23/24 13:07 ALMOST HAD SEIZURE tramadol Allergy Severe Hives Verified 09/23/24 13:07 codeine Allergy Intermediate Rash Verified 09/23/24 13:07 metoclopramide AdvReac Severe Seizure Verified 09/23/24 13:07 Review of Systems Review of Systems Systems Reviewed: All systems reviewed, normal except as documented ED Exam General Limitations: Present no limitations General appearance: Present alert and in no apparent distress Head Head exam: Present atraumatic Eye Eye exam: Present normal appearance, PERRL and EOMI ENT ENT exam: Present normal exam, normal oropharynx and mucous membranes moist Neck Neck exam: Present normal inspection, full ROM and trachea midline Chest Chest inspection: Present normal inspection and symmetric chest wall rise Respiratory Respiratory exam: Present normal lung sounds bilaterally Cardiovascular Cardiovascular exam: Present regular rate, normal rhythm and normal heart sounds Abdominal Exam Abdominal exam: Present soft and normal bowel sounds Extremities Exam Extremities exam: Present normal inspection and full ROM Back Exam Back exam: Present normal inspection and full ROM Neurological Exam Neurological exam: Present alert, oriented X3 and CN II-XII intact Psychiatric Psychiatric exam: Present normal affect and normal mood Skin Skin exam: Present warm, dry, intact and normal color Course Quality Measures none Orders Category Date Time Status CT abdomen pelvis wo con Stat Exams 10/01/24 20:33 Completed XR ribs LT min 3V w CXR1V Stat Exams 10/01/24 20:33 Completed Beta Hydroxybutyrate Stat Lab 10/01/24 22:24 Completed CBC Stat Lab 10/01/24 20:56 Completed CMP [Comprehensive Metabolic Panel] Stat Lab 10/01/24 20:56 Completed HCG Qualitative,Urine Stat Lab 10/01/24 20:55 Completed Lipase Stat Lab 10/01/24 20:56 Completed UA [Urinalysis] Stat Lab 10/01/24 20:55 Completed Urine Culture Stat Lab 10/01/24 20:55 Received Ketorolac Inj [Toradol Inj] Med 10/02/24 01:13 Discontinued 15 mg IM X1 ONE Ondansetron Odt [Zofran Odt] Med 10/01/24 20:33 Discontinued 4 mg PO X1 ONE Vital Signs Vital signs: Vital Signs Temperature 98.8 F 10/01/24 20:33 Pulse Rate 88 10/01/24 20:33 Respiratory Rate 18 10/01/24 20:33 Blood Pressure 134/70 H 10/01/24 20:33 Pulse Oximetry (%) 99 10/01/24 20:33 Oxygen Delivery Method Room Air 10/01/24 20:33 Pulse ox is 99% on room air, which is normal according to my interpretation. Abdominal Pain MDM Patient data External records reviewed:: [facility] previous records (Per chart review, patient was seen here on 09/23/24 for anxiety disorder.) Clinical information provided by:: patient Social determinants that could affect healthcare access:: none Patient has the following chronic illnesses:: DMI How is presenting disease/condition affected by chronic disease/condition?: uneffected by Evaluation data The following diagnostics were reviewed and interpreted by me:: lab results and radiology exam(s) Lab and/or radiology exams considered but not ordered:: none Interpretation Summary: CBC is normal, Glucose is elevated at 523, Anion Gap is normal, Lipase is normal, UA shows 4+ glucose, according to my interpretation. ----- [facility] Report Signed Patient: [facility]. Record#: [id number] Birthdate: 1990 Age/Sex: 34 / F Location: [facility] Attending Dr: Ordering Physician: Nikko Branch Date of Service: 10/01/24 Procedure(s): XR ribs LT min 3V w CXR1V Accession Number(s): [id number] cc: Nikko Branch; Joseph Soliz MD; Nash Hamilton MD~ Examination: Ribs, left, with PA chest, 5 views Technique: Chest PA, RIBS AP, RPO, LPO, AP coned lower ribs 5 views Exam date and time: October 01, 20242037 hrs. Indications: Patient fell today with injury to the chest, left chest and rib pain Findings: Mild prominence left ventricle Parenchymal disease in the lingular segment obscuring detail left cardiac contour No pneumothorax No acute rib fractures Impression: No pneumothorax Recommend lateral chest view follow-up to exclude parenchymal disease in the lingular segment left upper lobe Dictated By: Joseph Soliz MD Signed By: <Electronically signed by Joseph Soliz MD in [place]> 10/01/242106 -------- [facility] Report Signed Patient: [facility] DENTON [facility]. Record#: [id number] Birthdate: 1990 Age/Sex: 34 / F Location: [facility] Attending Dr: Ordering Physician: Nikko Branch Date of Service: 10/01/24 Procedure(s): CT abdomen pelvis wo con Accession Number(s): [id number] cc: Nikko Branch; Joseph Soliz MD; Nash Hamilton MD~ Examination: CT abdomen and pelvis without contrast. Coronal 3-D reconstructions. Sagittal 2-D reconstructions. Date and time of exam:October 01, 2024 2116 hrs. Comparison January 18, 2023 Indications: Patient fell today with injury to the abdomen, abdomen pain CTDI: vol (mGy): 12.61 DLP: (mGycm): 872 Technique: Axial images of the abdomen have been obtained, 3 mm slice thickness Intravenous contrast material has not been administered. Low dose protocols were performed. One or more of the following dose reduction techniques were used; automated exposure control, adjustment of the mA and/or KV according to patient size, use of iterative reconstruction technique. Findings: No pneumothorax Minimal pericardial effusion No liver splenic or renal laceration No perinephric hematoma No gallstones No pancreatic or adrenal mass Abdominal aorta intact, no free blood in the abdomen Suspicious for soft tissue contusion anterior right abdominal wall, axial image 128 Negative for pneumoperitoneum Normal appendix No bowel obstruction No diverticulitis Urinary bladder intact Absent uterus no lumbar vertebral bodies sacral segments hips appear intact Impression: No abdominal parenchymal laceration No perinephric hematoma Abdominal aorta intact No free blood in the abdomen or pelvis Mild anterior abdominal wall soft tissue contusion Dictated By: Joseph Soliz MD Signed By: <Electronically signed by Joseph Soliz MD in OV> 10/01/24 2148 Medications / Prescriptions Medications or Prescriptions considered but not ordered:: none Medication administrations:: Medication Administration History Discontinued Medications Ketorolac Tromethamine (Ketorolac Inj 60 Mg/2 Ml Vial) 15 mg IM X1 ONE Stop: 10/02/24 01:14 Last Admin: 10/02/24 01:22 Dose: 15 mg Documented By: LB Ondansetron HCl (Ondansetron Odt 4 Mg Tabrap) 4 mg PO X1 ONE; Protocol Stop: 10/01/24 20:34 Last Admin: 10/01/24 21:08 Dose: 4 mg Documented By: SF see above Consultations Consultation(s) initiated? (list below): No Diagnosis Differential diagnosis abdominal pain: other (contusion, rib fracture, intra-abdominal injurys) Most likely diagnosis given after review of the tests above:: see below Admission Indicated Admission indicated?: not indicated Admission Request Was there a request for admission?: No Disposition Plan Disposition Plan: Discharge Discharge Attestation Discharge Attestation: The patient and all family members were given an opportunity to ask questions and understood the discharge instructions. Discharge instructions specifically effects, indications for sooner follow up or return to the emergency department, and the expected course of current diagnosis. Patient condition: Stable Discharge Plan Plan Patient Disposition: HOME (Self Care) Patient condition on transfer: Stable Prescriptions/Referrals Prescriptions/Med Rec: No Action ibuprofen 800 mg tablet 800 mg PO TID PRN (Reason: pain) Qty: 30 0RF sumatriptan succinate 100 mg tablet 100 mg PO QDAY PRN (Reason: Headache) amlodipine 5 mg Tablet 5 mg PO QDAY albuterol sulfate 90 mcg/actuation Hfa Aerosol Inhaler 2 puff INHALATION Q4H PRN (Reason: SOB) insulin lispro [Admelog SoloStar U-100 Insulin] 100 unit/mL Insulin Pen 40 unit SUBCUT TID lamotrigine 25 mg tablet 25 tab PO QDAY Patient Comments: TAKE 1 TABLET BY MOUTH EVERY DAY baclofen 20 mg Tablet 20 mg PO BID mirtazapine 15 mg Tablet 15 mg PO HS escitalopram oxalate [Lexapro] 20 mg Tablet 40 mg PO QDAY Insulin Glargine [Basaglar Kwikpen U-100 Insulin] 80 unit subcut QAM 30 Days Qty: 2400 1RF cetirizine 10 mg tablet 1 tab PO QDAY gabapentin 800 mg tablet 800 mg PO TID omeprazole 20 mg capsule,delayed release(DR/EC) 1 cap PO BID Patient Comments: TAKE 1 CAPSULE BY MOUTH TWICE A DAY insulin glargine [Basaglar KwikPen U-100 Insulin] 100 unit/mL (3 mL) insulin pen 1 ea SUBCUT HS Rx Instructions: 57 UNITS AT NIGHT cephalexin 500 mg capsule 500 mg PO QID Qty: 21 0RF Rx Instructions: Patient has been on cephalexin in the past. hydroxyzine pamoate [Vistaril] 25 mg capsule 50 mg PO BID PRN (Reason: anxiety) Qty: 20 0RF Referrals: Nash Hamilton MD [Primary Care Provider] - In 1 week Problem List Clinical Impression: Abdominal wall contusion, Acute knee pain Patient/Caregiver Discharge Instructions Education Materials: Bruises (Contusions), ED PAUL Wrap, ED RICE Additional Instructions: Today your x-ray does not show that you have a fracture however can take 7 days of fracture troponin x-ray. If you are still having pain in 1 week you need to follow-up primary care for repeat x-ray. Wear the Paul bandage as directed for the next 2 to 3 days. Use the ice as directed for the next few days. Return to the emergency department for any worsening symptoms, or any other concerns. You can take [id number] Tylenol 650 mg 3 times a day for the next 3 to 5 days for pain. Print Language: [place] Stand Alone Forms: [facility] Award Info., Patient Portal Info Letter
--- NOTE | 2024-10-02 01:04 | PC.NURSE ---
Pt seen by Dr. Tavera. Pt c/o mild lt knee pain, small bruise to left knee noted. Pt denies any problem with ambulation. Will apply almas wrap and ice pack.
[2024-10-02] MEDS: KETOROLAC INJ 60 MG/2 ML VIAL 15 MG IM (01:22)
[2024-10-02 01:31] VITALS: BP 119/89; PULSE 106; RESP 18; TEMP 36.6; O2SAT 97
== END 2024-10-02 01:35 | disposition home or self-care (01) ==
PROVIDERS: Nurse Practitioner Family; Emergency Provider Emergency Medicine; PCP Family Medicine
DX: S30.1XXA Contusion of abdominal wall, initial encounter (principal); W01.190A Fall on same level from slipping, tripping and stumbling with subsequent striking against furniture, initial encounter; M25.562 Pain in left knee
CPT/HCPCS: 36415; 71101; 74176; 80053; 81001; 81025; 82010; 83690; 85025; 87086; 96372; 99284; J1885; Q0162

== ENCOUNTER 2025-02-03 14:39 | Emergency (ER) | payer MEDICAID, SELFPAY ==
[2025-02-03 14:41] VITALS: BP 134/81; PULSE 99; RESP 16; TEMP 36.8; O2SAT 95
[2025-02-03 14:50] VITALS: PULSE 98; RESP 18; O2SAT 97; BMI 34.9
--- NOTE | 2025-02-03 15:07 | PD.EDRME ---
Rapid Medical Screening Exam RME Arrival date/time: 02/03/25 14:39 34-year-old female with a history of type 1 diabetes, hypertension presents to the emergency room with a chief complaint of weakness, fatigue, elevated glucose 500. I have greeted and performed a focused initial assessment of this patient. A comprehensive ED assessment and evaluation of the patient, analysis of all test results, and completion of the medical decision making process will be conducted by additional ED providers. Chief Complaint: Recheck/Abnormal Lab/Rx Time Seen by Provider: 02/03/25 15:03 Vital signs: Vital Signs Temperature 98.2 F 02/03/25 14:41 Pulse Rate 99 02/03/25 14:41 Respiratory Rate 16 02/03/25 14:41 Blood Pressure 134/81 H 02/03/25 14:41 Pulse Oximetry (%) 95 02/03/25 14:41 Oxygen Delivery Method Room Air 02/03/25 14:41 Vital signs reviewed by provider: Yes
[2025-02-03 15:24] LABS: Base Excess, Venous 3 (-3-3); O2 Saturation, Venous 86 % (96-97); PCO2, Venous 41 mmHg (36-56); PO2, Venous 46 mmHg (15-58); pH, Venous 7.43 (7.33-7.66)
[2025-02-03 15:27] LABS: Basophils % (Auto) 0 % (0-2.5); Eosinophils % (Auto) 0 % (0-10); Hematocrit 38.1 % (36.0-46.0); Hemoglobin 13.4 g/dL (12.0-16.0); Immature Granulocytes % (Auto) 1 % (0-0); Immature Granulocytes Auto 0.06 Thou/mm3 (0.00-0.00); Lymphocytes # (Auto) 1.6 Thou/mm3 (1.0-4.8); Lymphocytes % (Auto) 19 % (10-50); Mean Corpuscular HGB Conc 35.2 g/dl (31.0-37.0); Mean Corpuscular Hemoglobin 27.9 pg (25.0-35.0); Mean Corpuscular Volume 79 fL (80-100); Monocytes # (Auto) 0.6 Thou/mm3 (0.0-0.8); Monocytes % (Auto) 7 % (0-12); Neutrophils % (Auto) 73 % (37-80); Nucleated Red Blood Cell % 0 /100 WBC (0); Platelet Count 227 Thou/mm3 (140-440); RDW Standard Deviation 40.1 fL (36.4-46.3); White Blood Count 8.2 Thou/mm3 (3.6-11.0)
[2025-02-03 15:28] LABS: Beta Hydroxybutyrate 0.2 mmol/L (<0.6)
[2025-02-03 15:52] LABS: Alanine Aminotransferase 22 U/L (10-49); Albumin, Serum 4.5 gm/dL (3.5-5.0); Albumin/Globulin Ratio 1.6 (1.2-2.2); Alkaline Phosphatase 113 U/L (46-116); Anion Gap 10 (7-16); Aspartate Amino Transferase 17 U/L (0-34); BUN/Creatinine Ratio 10 Ratio (12-20); Bilirubin,Total 0.6 mg/dL (0.3-1.2); Blood Urea Nitrogen 11 mg/dL (9-23); Carbon Dioxide 27.1 mMol/L (20.0-31.0); Chloride 98 mMol/L (98-107); Creatinine (Component) 1.1 mg/dL (0.6-1.3); Estimated Creatinine Clearance 89.4 mL/min (>60); Globulin 2.9 gm/dL (2.3-3.5); Osmolality,Calculated 295 (275-295); Potassium 4.5 mMol/L (3.4-5.1); Sodium 135 mMol/L (136-145); Total Protein 7.4 gm/dL (5.7-8.2); eGFR > 60 See Note
[2025-02-03 15:54] LABS: Glucose 561 mg/dL (74-106)
[2025-02-03] MEDS: SODIUM CHLORIDE 0.9% 1000 ML 1,000 ML 999 ML IV (16:29)
[2025-02-03] MEDS: ACETAMINOPHEN 500 MG TABLET 1000 MG PO (16:44)
--- NOTE | 2025-02-03 17:23 | XR_ITS ---
Examination: CT brain head without contrast. 2-D sagittal coronal reconstructions Date and time of exam:February 03, 2025 at 1728 hours Comparison August 11, 2022 INDICATIONS: High blood pressure with headache and weakness today CTDI: vol (mGy):50.7 DLP: (mGycm):1019 Technique: Multiple CT axial sections of the brain have been obtained, 5 mm slice thickness. Contrast has not been administered. 2-D sagittal, coronal reconstructions have been obtained Low dose protocols were performed. One or more of the following dose reduction techniques were used; automated exposure control, adjustment of the mA and/or KV according to patient size, use of iterative reconstruction technique. Findings: No significant ventricular enlargement. Intra-axial or extra-axial hemorrhage density is not seen. No mass effect or midline shift Basal cisterns are not remarkable. Fourth ventricle is midline. Cranial vault intact. Impression: Negative for acute hemorrhage, mass effect or midline shift
[2025-02-03 18:04] LABS: Collection Type, Urine Clean Catch
[2025-02-03] MEDS: INSULIN HUM REGULAR 1 UNIT/0.01 ML (PER UNIT) 10 UNIT IV (18:20)
[2025-02-03 18:24] LABS: Bacteria,Urine 1+; Bilirubin,Urine Negative (Negative); Blood,Urine Negative (Negative); Clarity,Urine Clear (Clear/Hazy); Color,Urine Colorless (Lt Yel-Yel); Glucose, Urine 4+ (Negative); Ketones,Urine Negative (Negative); Leukocyte Esterase,Urine Negative (Negative); Nitrite,Urine Negative (Negative); Protein,Urine Negative (Neg - Trace); RBC,Urine 1 /hpf (0-3); Specific Gravity,Urine 1.028 (1.001-1.035); Squamous Epithelial Cell,Urine 3 /hpf (0-5); Urobilinogen,Urine Negative mg/dL (0.0-1.0); WBC,Urine < 1 /hpf (0-5)
[2025-02-03 18:29] LABS: Culture Indicated,Urine Yes
[2025-02-03] MEDS: MORPHINE SULF INJ 10 MG/ML VIAL 5 MG IM (20:33)
--- NOTE | 2025-02-03 21:15 | PD.EDHA ---
ED Headache RME/HPI General Chief Complaint: Recheck/Abnormal Lab/Rx Stated Complaint: DIABETIC PROBLEMS Time Seen by Provider: 02/03/25 15:03 Source: patient Arrival date/time: 02/03/25 14:39 This is a case of 34-year-old female with history of type 1 diabetes hypertension came in in the emergency room due to frontal headache associated with generalized weakness fatigue and elevated glucose at home ranging 500 patient denies any polyuria polyphagia or polydipsia denies any chest pain numbness weakness tingling sensation incontinence to urine or stool Limitations: no limitations RME / HPI RME / HPI Narrative: 02/03/25 14:39 34-year-old female with a history of type 1 diabetes, hypertension presents to the emergency room with a chief complaint of weakness, fatigue, elevated glucose 500. I have greeted and performed a focused initial assessment of this patient. A comprehensive ED assessment and evaluation of the patient, analysis of all test results, and completion of the medical decision making process will be conducted by additional ED providers. Related Data Home Medications ?Medication ?Instructions ?Recorded ?Confirmed albuterol sulfate 90 mcg/actuation 2 puff inhalation Q4H PRN SOB 12/21/20 03/20/22 aerosol inhaler insulin lispro 100 unit/mL 40 unit subcut TID 09/05/21 03/20/22 subcutaneous pen (Admelog SoloStar U-100 Insulin lispro) baclofen 20 mg tablet 20 mg PO BID 02/15/22 03/20/22 escitalopram oxalate 20 mg tablet 40 mg PO QDAY 02/15/22 03/20/22 (Lexapro) lamotrigine 25 mg tablet 25 tab PO QDAY 02/15/22 03/20/22 mirtazapine 15 mg tablet 15 mg PO HS 02/15/22 03/20/22 amlodipine 5 mg tablet 5 mg PO QDAY 02/21/22 03/20/22 sumatriptan succinate 100 mg tablet 100 mg PO QDAY PRN Headache 02/21/22 03/20/22 cetirizine 10 mg tablet 1 tab PO QDAY 03/20/22 03/20/22 gabapentin 800 mg tablet 800 mg PO TID 03/20/22 03/20/22 insulin glargine 100 unit/mL (3 1 ea subcut HS 03/20/22 03/20/22 mL) subcutaneous pen (Basaglar KwikPen U-100 Insulin) omeprazole 20 mg capsule,delayed 1 cap PO BID 03/20/22 03/20/22 release Previous Rx's ?Medication ?Instructions ?Recorded ibuprofen 800 mg tablet 800 mg PO TID PRN pain #30 tabs 12/19/21 insulin glargine [Basaglar KwikPen 80 unit subcut QAM 30 days #2,400 02/20/22 U-100 Insulin] units cephalexin 500 mg capsule 500 mg PO QID #21 caps 01/18/23 hydroxyzine pamoate 25 mg capsule 50 mg (2 x 25 mg) PO BID PRN 03/10/24 (Vistaril) anxiety #20 caps sauzgyvskl-zdfnqplcsmdal-cuooybad 1 cap PO Q8H PRN pain #10 caps 02/03/25 50 mg-300 mg-40 mg capsule (Fioricet) ondansetron 4 mg disintegrating 4 mg PO Q8H #20 tabs 02/03/25 tablet Allergies Allergy/AdvReac Type Severity Reaction Status Date / Time adhesive tape Allergy Severe Hives Verified 02/03/25 14:50 cefixime Allergy Severe Rash Verified 02/03/25 14:50 guaifenesin (From Mucinex) Allergy Severe throat Verified 02/03/25 14:50 swelling hydrocodone Allergy Severe Rash Verified 02/03/25 14:50 Penicillins Allergy Severe Rash Verified 02/03/25 14:50 prochlorperazine edisylate Allergy Severe STATES Verified 02/03/25 14:50 ALMOST HAVING SEIZURES promethazine HCl Allergy Severe STATES Verified 02/03/25 14:50 ALMOST HAD SEIZURE tramadol Allergy Severe Hives Verified 02/03/25 14:50 codeine Allergy Intermediate Rash Verified 02/03/25 14:50 metoclopramide AdvReac Severe Seizure Verified 02/03/25 14:50 Review of Systems Review of Systems Systems Reviewed: All systems reviewed, normal except as documented Constitutional Constitutional: Reports system reviewed and no additional complaints, except as documented, Reports as per HPI, Denies chills, Reports fatigue, Denies fever(s), Denies frequent falls, Reports headache(s) and Reports weakness Eyes Eyes: Reports system reviewed and no additional complaints, except as documented, Reports as per HPI, Denies blurry vision, Denies change in vision, Denies decreased night vision, Denies diplopia, Denies eye discharge and Denies loss of vision ENT Ears, Nose, Mouth, and Throat: Reports system reviewed and no additional complaints, except as documented, Reports as per HPI, Denies abnormal hearing, Denies disequilibrium, Reports dizziness, Reports headache(s) and Reports vertigo Cardiovascular Cardiovascular: Reports system reviewed and no additional complaints, except as documented, Reports as per HPI, Denies chest pain, Denies dyspnea, Denies dyspnea on exertion, Denies edema, Denies leg edema and Denies syncope Respiratory Respiratory: Reports system reviewed and no additional complaints, except as documented, Reports as per HPI, Denies change in phlegm color, Denies chest congestion, Denies cough, Denies dyspnea and Denies dyspnea on exertion Gastrointestinal Gastrointestinal: Reports system reviewed and no additional complaints, except as documented, Reports as per HPI, Denies abdominal pain, Denies belching, Denies bloating, Denies change in bowel habits, Denies change in stool character, Denies nausea and Denies vomiting Genitourinary Genitourinary: Reports system reviewed and no additional complaints, except as documented, Reports as per HPI, Denies dysuria and Denies hematuria Musculoskeletal Musculoskeletal: Reports system reviewed and no additional complaints, except as documented, Reports as per HPI, Denies abnormal gait, Denies numbness and Denies tingling Neurologic Neurologic: Reports system reviewed and no additional complaints, except as documented, Reports as per HPI, Denies abnormal gait, Denies abnormal hearing, Denies abnormal movements, Denies abnormal speech, Denies behavioral changes, Denies burning sensations, Denies confusion, Denies convulsions, Denies disequilibrium, Reports dizziness, Denies localized weakness, Denies frequent falls, Reports headache(s), Denies lack of coordination, Denies loss of vision, Denies memory loss, Denies numbness, Denies other visual disturbances, Denies paresthesias, Denies radicular pain, Denies restless legs, Denies seizure-like activity, Denies sensory deficit, Denies syncope, Denies tingling, Denies tremor(s), Reports vertigo and Reports weakness Psychiatric Psychiatric: Denies behavioral changes, Denies confusion and Denies memory loss Endocrine Endocrine: Reports fatigue Past Medical History Past Medical History NEUROLOGIC: Positive Neurological Disorders, Seizures, Peripheral Neuropathy and Migraine; Negative Cerebrovascular Accident, Transient Ischemic Attacks (TIA), Dementia, Alzheimer's Disease, Parkinson's Disease, Brain Tumor, Meningitis, Epilepsy, Cerebral Palsy, Amyotrophic Lateral Sclerosis (ALS/Allison Gehrig's), Guillain-[place] Syndrome, Spina Bifida, Paralysis, Reyes's Palsy, Subdural Hematoma, Head Trauma, Spinal Cord Injury or Traumatic Brain Injury CARDIAC: Positive Cardiac Disorders and Hypertension; Negative Myocardial Infarction, Cardiac Arrhythmia, Atrial Fibrillation, Angina, Heart Murmur, Coronary Artery Disease, Atherosclerotic Heart Disease, Peripheral Vascular Disease, Hypercholesterolemia, Aneurysm, Congestive Heart Failure, Congenital Heart Disease, Valvular Heart Disease, Rheumatic Fever, Cardiomyopathy, Edema, Pericarditis, Cellulitis, Deep Vein Thrombosis, Hypotension or Varicose Veins RESPIRATORY: Positive Asthma, Bronchitis, Pneumonia and Pulmonary Embolism; Negative Chronic Obstructive Pulmonary Disease (COPD), Emphysema, Pulmonary Fibrosis, Cystic Fibrosis, Tuberculosis, Pulmonary Edema or Sleep Apnea GASTROINTESTINAL: Positive Gastrointestinal Disorders, Colitis, Hiatal Hernia, Hemorrhoids, Gastroesophageal Reflux Disease and Obesity; Negative Hepatitis, Cirrhosis, Pancreatitis, Celiac Disease, Gall Bladder Disease, Gastrointestinal Bleed, Esophageal Varices, King's Esophagus, Ulcerative Colitis, Diverticulitis, Diverticulosis, Ulcer, Colorectal Cancer, Irritable Bowel, Crohn's Disease or Obstructive Bowel GENITOURINARY: Positive Genitourinary Disorders; Negative Renal Disease, Kidney Stones, Polycystic Kidney Disease, Neurogenic Bladder, Inguinal Hernia, Dialysis or Benign Prostatic Hyperplasia REPRODUCTIVE: Positive Endometriosis and Previous Pregnancies; Negative Breast Cancer, Genital Herpes, Gonorrhea, Pelvic Inflammatory Disease, Syphilis or Uterine Prolapse MUSCULOSKELETAL: Positive Musculoskeletal Disorders, Carpal Tunnel Syndrome and Fractures; Negative Muscular Dystrophy, Myasthenia Gravis, Marfan's Syndrome, Bone Cancer, Arthritis, Rheumatoid Arthritis, Osteoporosis, Degenerative Disk Disease, Gout, Scoliosis, Fibromyalgia, Degenerative Joint Disease, Osteomyelitis or Poliovirus ENT: Negative Cataracts, Glaucoma, Blind, Retinal Detachment, Macular Degeneration, Ear Infection, Deafness, Head Trauma or Eye Prosthesis ENDOCRINE: Positive Endocrine Disorders, Diabetes Mellitus Type 2 and Hypoglycemia; Negative Diabetes Mellitus Type 1, [place]'s Syndrome, [place]'s Disease, Hyperthyroidism, Hypothyroidism, Parathyroid Disease, Pituitary Disease, Systemic Lupus Erythematosus, Syndrome of Inappropriate Antidiuretic Hormone (SIADH), Adrenal Disease or Graves' Disease HEMATOLOGIC: Positive Clotting Problems; Negative Blood Disorders, Anemia, Leukemia, Hemophilia, Thalassemia or Sickle Cell Disease PSYCHO/SOCIAL: Positive Depression, Anxiety and Post Traumatic Stress Disorder; Negative Psychiatric Problems, Schizophrenia, Recreational Drug Use, Bipolar Disorder, Behavior Problems, Self-Mutilation, Attention Deficit Disorder, Attention Deficit Hyperactivity Disorder, Depression or Eating Disorder OTHER HISTORY: Positive Hospitalization, Falls and Chicken Pox; Negative Autoimmune Disease, Down Syndrome, Autism, Developmental Delay, Shingles, Blood Transfusions, Blood Transfusion Reaction, Anesthesia Reactions, Organ Transplant, Chemotherapy, Radiation Therapy, Hyperbaric Therapy, MRSA, VRSA, Vancomycin-Resistant Enterococci, Human Immunodeficiency Virus (HIV), Measles, Mumps, Rubella (Beninese Measles), Pertussis, Clostridium Difficile, Cancer, Breast Cancer, Cervical Cancer, Colorectal Cancer, Lung Cancer or Ovarian Cancer Family History FAMILY HISTORY: Positive Family Psychiatric Problems and Family Respiratory Disorders; Negative Family Cardiac Disorders, Family Gastrointestinal Problems, Family Cancer, Family Surgery or Family Anesthesia Reaction Surgical History SURGICAL: Positive Eye Surgery, Oral Surgery, Abdominal Surgery, Hysterectomy, Tubal Ligation and Section; Negative Cardiac Surgery, Open Heart Surgery, Coronary Artery Bypass Graft, Valve Replacement, Vascular Surgery, Coronary Stent, Cardiac Catheterization, Pacemaker, Angiogram, Auto Implanted Cardiovert Defib, Carotid Endarterectomy, Endocrine Surgery, Thyroidectomy, Ear Surgery, Tympanostomy Tube, Nose Surgery, Tonsillectomy, Adenoidectomy, Cochlear Implant, Corneal Transplant, Throat Surgery, Tracheostomy, Gastric Bypass Surgery, Gastrostomy, Bowel Surgery, Nephrectomy, Transurethral Resection, Joint Replacement, Amputation, Open Reduction Internal Fixation, Arthroscopy, Neurologic Surgery, Brain Shunt, Mastectomy, Lumpectomy, Vasectomy or Organ Transplant Social History SMOKING STATUS: Never smoker SECOND HAND EXPOSURE: No SUBSTANCE USE: marijuana ED Exam General Limitations: Present no limitations General appearance: Present alert and in no apparent distress; Absent appears intoxicated, anxious, lethargic, obtunded or in distress Head Head exam: Present atraumatic Eye Eye exam: Present normal appearance, PERRL, EOMI and other (no pappiledema); Absent conjunctival injection, nystagmus, periorbital swelling or periorbital tenderness ENT ENT exam: Present normal exam, normal oropharynx, mucous membranes moist and TM's normal bilaterally Neck Neck exam: Present normal inspection, full ROM and trachea midline; Absent tenderness, meningismus, lymphadenopathy or thyromegaly Chest Chest inspection: Present normal inspection and symmetric chest wall rise Respiratory Respiratory exam: Present normal lung sounds bilaterally; Absent respiratory distress, wheezes, stridor, accessory muscle use or prolonged expiratory phase Cardiovascular Cardiovascular exam: Present regular rate, normal rhythm and normal heart sounds; Absent bradycardia, tachycardia, irregular rhythm, systolic murmur or diastolic murmur Abdominal Exam Abdominal exam: Present soft and normal bowel sounds; Absent distention, tenderness, guarding, rebound or rigidity Extremities Exam Extremities exam: Present normal inspection and full ROM Back Exam Back exam: Present normal inspection and full ROM Neurological Exam Neurological exam: Present alert, oriented X3, CN II-XII intact, normal gait and reflexes normal; Absent motor sensory deficit Expanded Neurological Exam Patient oriented to: Present person, place and time Cranial nerves: Normal: EOM function (II, III, IV, ), facial sensation (V), facial palsy (VII), gag reflex (IX), spinal accessory function (XI) and tongue deviation (XII) Cerebellar function: Normal: finger to nose and heel to sifuentes Cerebellar function: Present normal gait and Romberg normal Motor strength - LUE: 5/5 Motor strength - RUE: 5/5 Motor strength - LLE: 5/5 Motor strength - RLE: 5/5 Upper motor neuron exam: Normal: korin neglect, pronator drift, Babinski sign and sensory extinction Sensory exam upper extremity: Normal: light touch, pin prick, temperature and 2 point discrimination Sensory exam lower extremity: Normal: light touch, pin prick, temperature and 2 point discrimination DTR: 2+: biceps (L), biceps (R), patellar (L), patellar (R), Achilles tendon (L) and Achilles tendon (R) Psychiatric Psychiatric exam: Present normal affect and normal mood Skin Skin exam: Present warm, dry, intact and normal color Course Quality Measures none Orders Category Date Time Status Insert IV STAT Care 02/03/25 15:[address] head/brain wo con Stat Exams 02/03/25 17:23 Completed Beta Hydroxybutyrate Stat Lab 02/03/25 15:06 Completed CBC Stat Lab 02/03/25 15:06 Completed CMP [Comprehensive Metabolic Panel] Stat Lab 02/03/25 15:06 Completed UA, C/S IF [Urinalysis, C/S if Indicated] Stat Lab 02/03/25 17:23 Completed Urine Culture Stat Lab 02/03/25 17:23 Received Venous Blood Gas Stat Lab 02/03/25 15:06 Completed Acetaminophen Tab [Tylenol ES Tab] Med 02/03/25 16:31 Discontinued 1,000 mg PO X1 ONE Acetaminophen Tab [Tylenol ES Tab] Med 02/03/25 20:15 Discontinued 1,000 mg PO X1 ONE Insulin Regular Med 02/03/25 17:24 Discontinued 10 unit IV X1 ONE Morphine Inj Med 02/03/25 20:23 Discontinued 5 mg IM X1 ONE Ondansetron Inj [Zofran Inj] Med 02/03/25 15:06 Discontinued 4 mg IVP X1 ONE Sodium Chloride 0.9% 1000 ml [Ns] 1,000 ml Med 02/03/25 15:06 Discontinued IV 999 mls/hr Vital Signs Vital signs: Vital Signs Temperature 98.2 F 02/03/25 14:41 Pulse Rate 99 02/03/25 14:41 Respiratory Rate 16 02/03/25 14:41 Blood Pressure 134/81 H 02/03/25 14:41 Pulse Oximetry (%) 95 02/03/25 14:41 Oxygen Delivery Method Room Air 02/03/25 14:41 Oxygen saturation 95% in room air Headache MDM Narrative MDM Narrative:: This is a case of 34-year-old female with history of type 1 diabetes hypertension came in in the emergency room due to frontal headache associated with generalized weakness fatigue and elevated glucose at home ranging 500 patient denies any polyuria polyphagia or polydipsia denies any chest pain numbness weakness tingling sensation incontinence to urine or stool Physical examination patient is awake alert oriented not in distress nontoxic looking well-hydrated well-nourished with excellent skin turgor patient vital signs stable BP stable not tachycardic not tachypneic afebrile and nonhypoxic Patient eye exam EOM intact PERRL no pappiledema negative for meningeal sign heart and RRR no murmur lung sounds is clear no crackles no rales no retraction no stridor neurological exam is normal awake alert oriented x 4 no focal deficit GCS 15/15 no slurring of speech negative Romberg motor sensory reflexes are normal Patient blood test showed no leukocytosis no anemia patient is mildly hyponatremic 135 sodium normal potassium patient glucose noted to be 561 and anion gap is normal 10?the patient is not having DKA beta hydroxybutyrate is also negative venous blood gas is also normal urinalysis is also normal Patient was given a bolus of normal saline and 10 units of regular insulin IV for hyperglycemia patient blood sugar was reassessed and noted to be 251 patient headache is also treated CT scan showed unremarkable patient was given morphine patient verbalized that she is not allergy to this medication in spite of she is known to have allergy to hydrocodone in 30 minutes I reassessed the patient there is no allergic reaction there is no swelling there is no itching there is no shortness of breath after 30 minutes headache was resolved neurological exam is normal and unremarkable At this point patient will be discharged home with stable condition she will follow-up with his track sweeper for uncontrolled blood sugar and hyperglycemia she will also need to see a neurologist for her headache At this point I do not think patient is having TIA CVA meningitis sepsis or bacteremia I do not think the patient is also having DKA Hyperglycemia was also readily resolved the headache is also resolved thus patient can be discharged home in stable condition Patient was discharged with comfortable condition walking with stable gait. Patient verbalized no further complains explained diagnosis and answered patient question. Patient is comfortable with the proposed management plan including the need to follow up with his/her primary care physician and any specialist if applicable Discussed patient for any urgent condition or worsening sx, He/She needed to go to emergency room immediately or call 911. Patient acknowledge the responsibility to follow up as instructed and to monitor her/his symptoms. For any persistence of the symptoms for more than 3-5 days return precaution advised. Discussed the result of the test and was given printed discharge instruction Patient data External records reviewed:: [facility] previous records Clinical information provided by:: patient Social determinants that could affect healthcare access:: none Patient has the following chronic illnesses:: None How is presenting disease/condition affected by chronic disease/condition?: no chronic disease Evaluation data The following diagnostics were reviewed and interpreted by me:: lab results and radiology exam(s) Lab and/or radiology exams considered but not ordered:: Reviewed Interpretation Summary: Reviewed Medications / Prescriptions Medications or Prescriptions considered but not ordered:: Given Medication administrations:: Medication Administration History Discontinued Medications Acetaminophen (Acetaminophen 500 Mg Tablet) 1,000 mg PO X1 ONE Stop: 02/03/25 16:32 Last Admin: 02/03/25 16:44 Dose: 1,000 mg Documented By: GALA Acetaminophen (Acetaminophen 500 Mg Tablet) 1,000 mg PO X1 ONE Stop: 02/03/25 20:16 Last Admin: 02/03/25 20:27 Dose: Not Given Documented By: GALA Non-Admin Reason: Cancelled by Provider Sodium Chloride (Ns) 1,000 mls @ 999 mls/hr IV .Q1H1M ONE Stop: 02/03/25 16:06 Last Infusion: 02/03/25 16:35 Dose: Infused Documented By: Admin: 02/03/25 16:29 Dose: 999 mls/hr Documented By: FRANKI Insulin Human Regular (Insulin Hum Regular 1 Unit/0.01 Ml (Per Unit)) 10 unit IV X1 ONE Stop: 02/03/25 17:25 Last Admin: 02/03/25 18:20 Dose: 10 unit Documented By: KOBI Co-signed By: FRANKI Morphine Sulfate (Morphine Sulf Inj 10 Mg/Ml Vial) 5 mg IM X1 ONE Stop: 02/03/25 20:24 Last Admin: 02/03/25 20:33 Dose: 5 mg Documented By: GALA Ondansetron HCl (Ondansetron Inj 2 Mg/Ml Inj 2 Ml) 4 mg IVP X1 ONE; Protocol Stop: 02/03/25 15:07 Last Admin: 02/03/25 18:17 Dose: Not Given Documented By: FRANKI Non-Admin Reason: Patient Refused Given Consultations Consultation(s) initiated? (list below): No Diagnosis Differential diagnosis headache: migraine, tension headache, headache and sinusitis Most likely diagnosis given after review of the tests above:: Tension headache Admission Indicated Admission indicated?: not indicated Explain why admission is indicated or not indicated:: Not indicated Admission Request Was there a request for admission?: No Disposition Plan Disposition Plan: Discharge Discharge Attestation Discharge Attestation: The patient and all family members were given an opportunity to ask questions and understood the discharge instructions. Discharge instructions specifically effects, indications for sooner follow up or return to the emergency department, and the expected course of current diagnosis. Patient condition: Stable Discharge Plan Plan Patient Disposition: HOME (Self Care) Prescriptions/Referrals Prescriptions/Med Rec: New [id number] [Fioricet] 50-300-40 mg capsule 1 cap PO Q8H PRN (Reason: pain) Qty: 10 0RF ondansetron 4 mg tablet,disintegrating 4 mg PO Q8H Qty: 20 0RF No Action ibuprofen 800 mg tablet 800 mg PO TID PRN (Reason: pain) Qty: 30 0RF sumatriptan succinate 100 mg tablet 100 mg PO QDAY PRN (Reason: Headache) amlodipine 5 mg Tablet 5 mg PO QDAY albuterol sulfate 90 mcg/actuation Hfa Aerosol Inhaler 2 puff INHALATION Q4H PRN (Reason: SOB) insulin lispro [Admelog SoloStar U-100 Insulin] 100 unit/mL Insulin Pen 40 unit SUBCUT TID lamotrigine 25 mg tablet 25 tab PO QDAY Patient Comments: TAKE 1 TABLET BY MOUTH EVERY DAY baclofen 20 mg Tablet 20 mg PO BID mirtazapine 15 mg Tablet 15 mg PO HS escitalopram oxalate [Lexapro] 20 mg Tablet 40 mg PO QDAY Insulin Glargine [Basaglar Kwikpen U-100 Insulin] 80 unit subcut QAM 30 Days Qty: 2400 1RF cetirizine 10 mg tablet 1 tab PO QDAY gabapentin 800 mg tablet 800 mg PO TID omeprazole 20 mg capsule,delayed release(DR/EC) 1 cap PO BID Patient Comments: TAKE 1 CAPSULE BY MOUTH TWICE A DAY insulin glargine [Basaglar KwikPen U-100 Insulin] 100 unit/mL (3 mL) insulin pen 1 ea SUBCUT HS Rx Instructions: 57 UNITS AT NIGHT cephalexin 500 mg capsule 500 mg PO QID Qty: 21 0RF Rx Instructions: Patient has been on cephalexin in the past. hydroxyzine pamoate [Vistaril] 25 mg capsule 50 mg PO BID PRN (Reason: anxiety) Qty: 20 0RF Referrals: Miah Wilson MD [Primary Care Provider] - In 1 week Problem List Clinical Impression: Hyperglycemia, Headache Patient/Caregiver Discharge Instructions Education Materials: Self-Care for Headaches, ED Diabetes with High Blood Sugar Additional Instructions: Follow-up with your primary care physician in 2 days for reevaluation it is important to see your track sweeper for further evaluation and treatment of your uncontrolled blood sugar and hyperglycemia continue to take your medication for diabetes continue to monitor your blood sugar if your blood sugar greater than 250 or becomes symptomatic return to the emergency room immediately or call 911 it is also important to see neurologist for further evaluation and treatment of your headache keep hydrated increase water intake for any recurrence worsening symptoms or any emergent concern return to the emergency room immediately or call [phone] Print Language: Sudanese Stand Alone Forms: [employer] Award Info., Patient Portal Info Letter PA/PRODUCT CONSULTANT Supervising Physician PA/PRODUCT CONSULTANT Supervising Physician: dr [email or web address]
== END 2025-02-03 21:33 | disposition home or self-care (01) ==
PROVIDERS: Nurse Practitioner Family; Emergency Provider Emergency Medicine; PCP Student in an Organized Health Care Education/Training Program
DX: E10.65 Type 1 diabetes mellitus with hyperglycemia (principal); I10 Essential (primary) hypertension
CPT/HCPCS: 36415; 70450; 80053; 81001; 82010; 82803; 85025; 87086; 96372; 99284; J1815; J2270; J7030; A9270

== ENCOUNTER → 2025-02-13 | Outpatient (CLI) | payer MEDICAID, SELFPAY ==
--- NOTE | 2025-02-13 09:08 | XR_ITS ---
Exam: elbow bilateral, 6 views Technique: Elbow AP, oblique each elbow total 6 views Exam date and time: February 13, 2025 0912 hours INDICATIONS: Bilateral elbow pain beginning 3 months ago FINDINGS: No fracture or dislocation involving either elbow No elbow effusions No significant arthritic change IMPRESSION: No fracture or dislocation involving either elbow No erosive or other significant arthritic change involving either elbow.
--- NOTE | 2025-02-13 09:08 | XR_ITS ---
Examination: Bilateral hands, 6 views. Technique: AP, Oblique, Lateral each hand total 6 views Date and time of exam: February 13, 2025 0912 hours INDICATIONS: Bilateral hand pain beginning 3 months ago. FINDINGS: Mild osteopenia Mild diffuse narrowing joints of the wrist and hand bilaterally No erosive arthritis No fractures No cortical bone destruction No opaque foreign bodies IMPRESSION: Mild osteopenia Mild diffuse narrowing joints of the wrist and hand bilaterally
--- NOTE | 2025-02-13 09:08 | XR_ITS ---
Examination: Bilateral wrists 6 views TECHNIQUE: AP oblique lateral each wrist total 6 views Date and time: February 13, 2025 0923 hours INDICATIONS: Bilateral wrist pain 3 months. FINDINGS: Mild narrowing radiocarpal and intercarpal joints bilaterally No erosive arthritis No fractures involving either wrist No avascular necrosis IMPRESSION: Mild narrowing radiocarpal and metacarpal joints bilaterally
== END | disposition home or self-care (01) ==
PROVIDERS: PCP Student in an Organized Health Care Education/Training Program
DX: M85.842 Other specified disorders of bone density and structure, left hand (principal); M85.841 Other specified disorders of bone density and structure, right hand; M25.842 Other specified joint disorders, left hand; M25.841 Other specified joint disorders, right hand; M25.832 Other specified joint disorders, left wrist; M25.831 Other specified joint disorders, right wrist
CPT/HCPCS: 73080; 73110; 73130

== ENCOUNTER 2025-06-04 16:29 | Emergency (ER) | payer MEDICAID, SELFPAY ==
[2025-06-04 16:32] VITALS: BMI 34.4
[2025-06-04 16:52] VITALS: BP 137/86; PULSE 111; RESP 18; TEMP 37.7; O2SAT 95; BMI 34.4
--- NOTE | 2025-06-04 17:10 | XR_ITS ---
Examination: CT abdomen and pelvis without contrast. Coronal 3-D reconstructions. Sagittal 2-D reconstructions. Date and time of exam:June 04, 2025, 1901 hrs., Comparison October 01, 2024 Pelvic pain bilateral flank pain today CTDI: vol (mGy): 11.2 DLP: (mGycm): 706 Technique: Axial images of the abdomen have been obtained, 3 mm slice thickness Intravenous contrast material has not been administered. Low dose protocols were performed. One or more of the following dose reduction techniques were used; automated exposure control, adjustment of the mA and/or KV according to patient size, use of iterative reconstruction technique. Findings: Trace pericardial thickening Liver is irregular in contour, enlarged, 26 cm Splenomegaly, 19 cm Minimal perinephric stranding Mild cellulitis pattern in the anterior abdominal wall soft tissue axial image 102 No renal or ureteral calculi, no hydronephrosis Aorta normal size Normal appendix No bowel obstruction No bladder mass Absent uterus No adnexal mass Mild osteopenia Impression: Significant hepatosplenomegaly Minimal perinephric stranding No renal or ureteral calculi, no hydronephrosis Normal appendix No bladder mass or bladder calculi
--- NOTE | 2025-06-04 17:10 | PD.EDRME ---
Rapid Medical Screening Exam E Arrival date/time: 06/04/25 16:29 34-year-old female presents to the emergency dept today with abdominal pain, generalized body aches and headache patient reports elevated blood sugar this week Chief Complaint: Abdominal Pain Vital signs: Vital Signs Temperature 99.8 F 06/04/25 16:52 Pulse Rate 111 H 06/04/25 16:52 Respiratory Rate 18 06/04/25 16:52 Blood Pressure 137/86 H 06/04/25 16:52 Pulse Oximetry (%) 95 06/04/25 16:52 Oxygen Delivery Method Room Air 06/04/25 16:52
[2025-06-04 17:36] LABS: Base Excess, Venous 4 (-3-3); Basophils # (Auto) 0.0 Thou/mm3 (0.0-0.2); Basophils % (Auto) 0 % (0-2.5); Eosinophils # (Auto) 0.0 Thou/mm3 (0.0-0.5); Eosinophils % (Auto) 0 % (0-10); Hematocrit 40.2 % (36.0-46.0); Hemoglobin 13.7 g/dL (12.0-16.0); Immature Granulocytes Auto 0.09 Thou/mm3 (0.00-0.00); Lymphocytes # (Auto) 3.2 Thou/mm3 (1.0-4.8); Lymphocytes % (Auto) 28 % (10-50); Mean Corpuscular HGB Conc 34.1 g/dl (31.0-37.0); Mean Corpuscular Hemoglobin 28.5 pg (25.0-35.0); Mean Corpuscular Volume 84 fL (80-100); Monocytes # (Auto) 1.0 Thou/mm3 (0.0-0.8); Monocytes % (Auto) 9 % (0-12); Neutrophils # (Auto) 7.1 Thou/mm3 (1.8-7.7); Neutrophils % (Auto) 63 % (37-80); Nucleated Red Blood Cell # 0.00 Thou/mm3 (0.00-0.00); Nucleated Red Blood Cell % 0 /100 WBC (0); O2 Saturation, Venous 86 % (96-97); PCO2, Venous 48 mmHg (36-56); PO2, Venous 50 mmHg (15-58); Platelet Count 278 Thou/mm3 (140-440); RDW Standard Deviation 43.8 fL (36.4-46.3); Red Blood Count 4.80 Miln/mm3 (4.00-5.20); White Blood Count 11.4 Thou/mm3 (3.6-11.0); pH, Venous 7.40 (7.33-7.66)
[2025-06-04 17:42] LABS: Beta Hydroxybutyrate 0.1 mmol/L (<0.6)
[2025-06-04 17:54] LABS: Glucose Estimated Average 134 mg/dL (80-131); Hemoglobin A1C 6.3 % Hgb (4.8-6.0)
[2025-06-04 17:56] LABS: Alanine Aminotransferase 19 U/L (10-49); Albumin, Serum 4.8 gm/dL (3.5-5.0); Albumin/Globulin Ratio 1.7 (1.2-2.2); Alkaline Phosphatase 109 U/L (46-116); Anion Gap 13 (7-16); Aspartate Amino Transferase 18 U/L (0-34); BUN/Creatinine Ratio 7 Ratio (12-20); Bilirubin,Total 0.6 mg/dL (0.3-1.2); Blood Urea Nitrogen 7 mg/dL (9-23); Calcium 9.5 mg/dL (8.3-10.6); Calcium (Corrected) 9.5 mg/dL (8.5-10.1); Carbon Dioxide 28.1 mMol/L (20.0-31.0); Chloride 100 mMol/L (98-107); Creatinine (Component) 1.0 mg/dL (0.6-1.3); Estimated Creatinine Clearance 94.4 mL/min (>60); Globulin 2.8 gm/dL (2.3-3.5); Glucose 166 mg/dL (74-106); Lipase 26 U/L (12-53); Osmolality,Calculated 283 (275-295); Potassium 3.9 mMol/L (3.4-5.1); Sodium 141 mMol/L (136-145); Total Protein 7.6 gm/dL (5.7-8.2); eGFR > 60 See Note
[2025-06-04 18:13] LABS: Collection Type, Urine Clean Catch
[2025-06-04 18:32] LABS: Bacteria,Urine Rare; Bilirubin,Urine Negative (Negative); Blood,Urine Negative (Negative); Clarity,Urine Turbid (Clear/Hazy); Color,Urine Lt-Yellow (Lt Yel-Yel); Culture Indicated,Urine Not Indicated; Glucose, Urine 3+ (Negative); Ketones,Urine Negative (Negative); Leukocyte Esterase,Urine Positive (Negative); Nitrite,Urine Negative (Negative); PH,Urine 6.0 (5.0-7.0); Protein,Urine Negative (Neg - Trace); RBC,Urine 5 /hpf (0-3); Specific Gravity,Urine 1.016 (1.001-1.035); Squamous Epithelial Cell,Urine 8 /hpf (0-5); Urobilinogen,Urine Negative mg/dL (0.0-1.0); WBC,Urine 8 /hpf (0-5)
--- NOTE | 2025-06-04 18:40 | PC.NURSE ---
patient up to triage states she would like something for 10/10 pain to lower abdomen and head, new orders received from Desiree [facility] [employer]
[2025-06-04] MEDS: ONDANSETRON ODT 4 MG TABRAP PO (19:46)
[2025-06-04] MEDS: MORPHINE SULF INJ 4 MG/ML VIAL IM (19:46)
--- NOTE | 2025-06-04 20:27 | PD.EDHA ---
ED Headache RME/HPI General Chief Complaint: Abdominal Pain Stated Complaint: HIGH BG, WILSON, ABD PAIN, TYPE 1 DM Time Seen by Provider: 06/04/25 18:45 Arrival date/time: 06/04/25 16:29 RME / HPI RME / HPI Narrative: 34-year-old female presents to the emergency dept today with abdominal pain, generalized body aches and headache patient reports elevated blood sugar this week. Patient denies any vomiting denies any diarrhea denies any constipation denies any other complaints no medication was taken prior to ER visit. Related Data Home Medications ?Medication ?Instructions ?Recorded ?Confirmed albuterol sulfate 90 mcg/actuation 2 puff inhalation Q4H PRN SOB 12/21/20 03/20/22 aerosol inhaler insulin lispro 100 unit/mL 40 unit subcut TID 09/05/21 03/20/22 subcutaneous pen (Admelog SoloStar U-100 Insulin lispro) baclofen 20 mg tablet 20 mg PO BID 02/15/22 03/20/22 escitalopram oxalate 20 mg tablet 40 mg PO QDAY 02/15/22 03/20/22 (Lexapro) lamotrigine 25 mg tablet 25 tab PO QDAY 02/15/22 03/20/22 mirtazapine 15 mg tablet 15 mg PO HS 02/15/22 03/20/22 amlodipine 5 mg tablet 5 mg PO QDAY 02/21/22 03/20/22 sumatriptan succinate 100 mg tablet 100 mg PO QDAY PRN Headache 02/21/22 03/20/22 cetirizine 10 mg tablet 1 tab PO QDAY 03/20/22 03/20/22 gabapentin 800 mg tablet 800 mg PO TID 03/20/22 03/20/22 insulin glargine 100 unit/mL (3 1 ea subcut HS 03/20/22 03/20/22 mL) subcutaneous pen (Basaglar KwikPen U-100 Insulin) omeprazole 20 mg capsule,delayed 1 cap PO BID 03/20/22 03/20/22 release Previous Rx's ?Medication ?Instructions ?Recorded ibuprofen 800 mg tablet 800 mg PO TID PRN pain #30 tabs 12/19/21 insulin glargine [Basaglar KwikPen 80 unit subcut QAM 30 days #2,400 02/20/22 U-100 Insulin] units cephalexin 500 mg capsule 500 mg PO QID #21 caps 01/18/23 hydroxyzine pamoate 25 mg capsule 50 mg (2 x 25 mg) PO BID PRN 03/10/24 (Vistaril) anxiety #20 caps irveoauluu-pveqptwnlzvcz-nmsmfwoz 1 cap PO Q8H PRN pain #10 caps 02/03/25 50 mg-300 mg-40 mg capsule (Fioricet) ondansetron 4 mg disintegrating 4 mg PO Q8H #20 tabs 02/03/25 tablet Allergies Allergy/AdvReac Type Severity Reaction Status Date / Time adhesive tape Allergy Severe Hives Verified 06/04/25 16:32 cefixime Allergy Severe Rash Verified 06/04/25 16:32 guaifenesin (From Mucinex) Allergy Severe throat Verified 06/04/25 16:32 swelling hydrocodone Allergy Severe Rash Verified 06/04/25 16:32 Penicillins Allergy Severe Rash Verified 06/04/25 16:32 prochlorperazine edisylate Allergy Severe STATES Verified 06/04/25 16:32 ALMOST HAVING SEIZURES promethazine HCl Allergy Severe STATES Verified 06/04/25 16:32 ALMOST HAD SEIZURE tramadol Allergy Severe Hives Verified 06/04/25 16:32 codeine Allergy Intermediate Rash Verified 06/04/25 16:32 metoclopramide AdvReac Severe Seizure Verified 06/04/25 16:32 Review of Systems Review of Systems Narrative Review of Systems: Review of system reviewed and within normal limits except mentioned in HPI ED Exam Narrative Physical exam: VITAL SIGNS: Reviewed. GENERAL APPEARANCE: Alert and interactive, follows commands, no acute distress, HEAD AND FACE: Non-traumatic. ENT: PERRL, pink conjunctivitis, eyelid no trauma, Mucous membrane moist. NECK: Supple, nontender, no nuchal rigidity. CHEST: No tenderness, no crepitus, no paradoxical movement, no retractions. LUNGS: Clear, well ventilated, symmetric, no rales, no wheezing, no ronchi, no stridor, good breath sounds bilaterally. HEART: Regular rate, regular rhythm, no murmur, no gallops. ABDOMEN: Soft, positive bowel sounds, nondistended, no guarding, nontender, no rebound, no masses, RECTAL: Deferred. GENITAL: Deferred. NEUROLOGICAL: Gross motor function intact sensory function intact, Appropriate for age. MUSCULOSKELETAL: low back nontender, full range of motion. EXTREMITIES: Nontender, full range of motion. SKIN: Color pink, dry, no rash, no lacerations, no abrasions, no contusions. LYMPHATICS: Deferred. Course Quality Measures none Orders Category Date Time Status CT abdomen pelvis wo con Stat Exams 06/04/25 17:10 Completed A1C [Glycohemoglobin w (eAG)] Stat Lab 06/04/25 17:18 Completed Beta Hydroxybutyrate Stat Lab 06/04/25 17:18 Completed CBC Stat Lab 06/04/25 17:18 Completed Comprehensive Metabolic Panel Stat Lab 06/04/25 17:18 Completed Lipase Stat Lab 06/04/25 17:18 Completed UA, C/S IF [Urinalysis, C/S if Indicated] Stat Lab 06/04/25 18:05 Completed VBG [Venous Blood Gas] Stat Lab 06/04/25 17:18 Completed Morphine* Inj Med 06/04/25 18:48 Discontinued 4 mg IM X1 ONE Ondansetron Odt [Zofran Odt] Med 06/04/25 18:48 Discontinued 4 mg PO X1 ONE Vital Signs Vital signs: Vital Signs Temperature 99.8 F 06/04/25 16:52 Pulse Rate 111 H 06/04/25 16:52 Respiratory Rate 18 06/04/25 16:52 Blood Pressure 137/86 H 06/04/25 16:52 Pulse Oximetry (%) 95 06/04/25 16:52 Oxygen Delivery Method Room Air 06/04/25 16:52 Headache MDM Narrative MDM Narrative:: 34-year-old female presents to the emergency dept today with abdominal pain, generalized body aches and headache patient reports elevated blood sugar this week. Patient denies any vomiting denies any diarrhea denies any constipation denies any other complaints no medication was taken prior to ER visit. CT scan of the abdomen and pelvis, came back unremarkable. No further workup also came back normal patient's blood sugar today was noted to be 166 with no sign of diabetic ketoacidosis. Patient's urinalysis is contaminated. Hemoglobin A1c is 6.3. Results discussed with the patient, patient was given morphine IM, and Zofran, with complete resolution of symptoms. Patient stable for discharge home. Patient data External records reviewed:: None Clinical information provided by:: patient Social determinants that could affect healthcare access:: none Patient has the following chronic illnesses:: Diabetes mellitus, history of diabetic gastroparesis How is presenting disease/condition affected by chronic disease/condition?: exacerbated by Evaluation data The following diagnostics were reviewed and interpreted by me:: lab results and radiology exam(s) Lab and/or radiology exams considered but not ordered:: None Interpretation Summary: See results MDM Medications / Prescriptions Medications or Prescriptions considered but not ordered:: None Medication administrations:: Medication Administration History Discontinued Medications Morphine Sulfate (Morphine Sulf Inj 4 Mg/Ml Vial) 4 mg IM X1 ONE Stop: 06/04/25 18:49 Last Admin: 06/04/25 19:46 Dose: 4 mg Documented By: Ondansetron HCl (Ondansetron Odt 4 Mg Tabrap) 4 mg PO X1 ONE; Protocol Stop: 06/04/25 18:49 Last Admin: 06/04/25 19:46 Dose: 4 mg Documented By: Zofran and morphine Consultations Consultation(s) initiated? (list below): No Diagnosis Differential diagnosis headache: migraine, headache and other (Abdominal pain) Most likely diagnosis given after review of the tests above:: Headache, diabetic gastroparesis Admission Indicated Admission indicated?: not indicated Admission Request Was there a request for admission?: No Disposition Plan Disposition Plan: Discharge Discharge Attestation Discharge Attestation: The patient was given an opportunity to ask questions and understood the discharge instructions. Discharge instructions specifically effects, indications for sooner follow up or return to the emergency department, and the expected course of current diagnosis. Patient condition: Stable Discharge Plan Plan Patient Disposition: HOME (Self Care) Discharge Disposition comment: Stable Prescriptions/Referrals Prescriptions/Med Rec: No Action ibuprofen 800 mg tablet 800 mg PO TID PRN (Reason: pain) Qty: 30 0RF sumatriptan succinate 100 mg tablet 100 mg PO QDAY PRN (Reason: Headache) amlodipine 5 mg Tablet 5 mg PO QDAY albuterol sulfate 90 mcg/actuation Hfa Aerosol Inhaler 2 puff INHALATION Q4H PRN (Reason: SOB) insulin lispro [Admelog SoloStar U-100 Insulin] 100 unit/mL Insulin Pen 40 unit SUBCUT TID lamotrigine 25 mg tablet 25 tab PO QDAY Patient Comments: TAKE 1 TABLET BY MOUTH EVERY DAY baclofen 20 mg Tablet 20 mg PO BID mirtazapine 15 mg Tablet 15 mg PO HS escitalopram oxalate [Lexapro] 20 mg Tablet 40 mg PO QDAY Insulin Glargine [Basaglar Kwikpen U-100 Insulin] 80 unit subcut QAM 30 Days Qty: 2400 1RF cetirizine 10 mg tablet 1 tab PO QDAY gabapentin 800 mg tablet 800 mg PO TID omeprazole 20 mg capsule,delayed release(DR/EC) 1 cap PO BID Patient Comments: TAKE 1 CAPSULE BY MOUTH TWICE A DAY insulin glargine [Basaglar KwikPen U-100 Insulin] 100 unit/mL (3 mL) insulin pen 1 ea SUBCUT HS Rx Instructions: 57 UNITS AT NIGHT cephalexin 500 mg capsule 500 mg PO QID Qty: 21 0RF Rx Instructions: Patient has been on cephalexin in the past. hydroxyzine pamoate [Vistaril] 25 mg capsule 50 mg PO BID PRN (Reason: anxiety) Qty: 20 0RF gmzwtkcbne-exkswmiessytx-[id number] [Fioricet] 50-300-40 mg capsule 1 cap PO Q8H PRN (Reason: pain) Qty: 10 0RF ondansetron 4 mg tablet,disintegrating 4 mg PO Q8H Qty: 20 0RF Referrals: Yuridia Castorena FNP [Primary Care Provider] - In 1 week Problem List Clinical Impression: Diabetic gastroparesis associated with type 1 diabetes mellitus, Headache Patient/Caregiver Discharge Instructions Discharge Activity: activity as tolerated Education Materials: Healthy Meals for Diabetes Additional Instructions: Thank you for the opportunity for serving you today. You are stable for discharged . You are advised to: Follow-up with your PCP in 1 to 2 days Return to ED for worsening of symptoms Increase oral fluids Print Language: Luxembourgish Stand Alone Forms: [facility] Award Info., Patient Portal Info Letter MAGDA/PEE Supervising Physician MAGDA/PEE Supervising Physician: MD Cheri
== END 2025-06-04 20:31 | disposition home or self-care (01) ==
PROVIDERS: Nurse Practitioner Primary Care; Emergency Provider Emergency Medicine; PCP Student in an Organized Health Care Education/Training Program
DX: E10.43 Type 1 diabetes mellitus with diabetic autonomic (poly)neuropathy (principal); K31.84 Gastroparesis; R51.9 Headache, unspecified; Z79.4 Long term (current) use of insulin
CPT/HCPCS: 36415; 74176; 80053; 81001; 82010; 82803; 83036; 83690; 85025; 96372; 99284; J2270; Q0162

== ENCOUNTER 2025-07-18 21:41 | Emergency (ER) | payer MEDICAID, SELFPAY ==
[2025-07-18 21:43] VITALS: BMI 36.0
[2025-07-18 22:00] VITALS: BP 140/83; PULSE 117; RESP 20; TEMP 37.3; O2SAT 96
--- NOTE | 2025-07-18 22:04 | XR_ITS ---
EXAMINATION: PA chest single view TECHNIQUE: Upright PA chest single view Date and time: July,, 10 0 9:00 p.m., comparison October 01, 2024 INDICATIONS: Chest pain congestion coughing beginning 2 days ago. FINDINGS: Mild prominence left ventricle Reduced inspiratory effort No lobar pneumonia No pulmonary edema IMPRESSION: Poor inspiratory effort chest x-ray
[2025-07-18 22:52] LABS: Influenza A Ag Negative; Influenza B Ag Negative
== END 2025-07-18 23:35 | disposition home or self-care (01) ==
PROVIDERS: Nurse Practitioner Family; Emergency Provider Emergency Medicine; PCP Student in an Organized Health Care Education/Training Program
DX: Z53.21 Procedure and treatment not carried out due to patient leaving prior to being seen by health care provider (principal)
CPT/HCPCS: 71045; 87502; 87635; 99282

== ENCOUNTER 2025-09-07 12:11 | Emergency (ER) | payer MEDICAID, SELFPAY ==
[2025-09-07 12:29] VITALS: BP 139/85; PULSE 91; RESP 17; TEMP 36.6; O2SAT 98; BMI 36.8
--- NOTE | 2025-09-07 12:39 | PD.EDADULT ---
ED General RME/HPI General Chief complaint: Back Pain/Injury Stated complaint: PAIN IN LEGS/BACK, NAUCEOUS Time Seen by Provider: 09/07/25 12:37 Arrival date/time: 09/07/25 12:11 CC: Burning sensation to the thighs and hamstrings HPI ongoing for the past 3 days. No prior history of similar events. Patient denies any heavy lifting long running squats or any heavy activity that may precipitate this. Patient states pain was not relieved with gabapentin or home medications. Patient denies fever chest pain shortness of breath difficulty breathing painful urination bloody urination abdominal pain Related Data Home Medications ?Medication ?Instructions ?Recorded ?Confirmed albuterol sulfate 90 mcg/actuation 2 puff inhalation Q4H PRN SOB 12/21/20 03/20/22 aerosol inhaler insulin lispro 100 unit/mL 40 unit subcut TID 09/05/21 03/20/22 subcutaneous pen (Admelog SoloStar U-100 Insulin lispro) baclofen 20 mg tablet 20 mg PO BID 02/15/22 03/20/22 escitalopram oxalate 20 mg tablet 40 mg PO QDAY 02/15/22 03/20/22 (Lexapro) lamotrigine 25 mg tablet 25 tab PO QDAY 02/15/22 03/20/22 mirtazapine 15 mg tablet 15 mg PO HS 02/15/22 03/20/22 amlodipine 5 mg tablet 5 mg PO QDAY 02/21/22 03/20/22 sumatriptan succinate 100 mg tablet 100 mg PO QDAY PRN Headache 02/21/22 03/20/22 cetirizine 10 mg tablet 1 tab PO QDAY 03/20/22 03/20/22 gabapentin 800 mg tablet 800 mg PO TID 03/20/22 03/20/22 insulin glargine 100 unit/mL (3 1 ea subcut HS 03/20/22 03/20/22 mL) subcutaneous pen (Basaglar KwikPen U-100 Insulin) omeprazole 20 mg capsule,delayed 1 cap PO BID 03/20/22 03/20/22 release Previous Rx's ?Medication ?Instructions ?Recorded ibuprofen 800 mg tablet 800 mg PO TID PRN pain #30 tabs 12/19/21 insulin glargine [Basaglar KwikPen 80 unit subcut QAM 30 days #2,400 02/20/22 U-100 Insulin] units cephalexin 500 mg capsule 500 mg PO QID #21 caps 01/18/23 hydroxyzine pamoate 25 mg capsule 50 mg (2 x 25 mg) PO BID PRN 03/10/24 (Vistaril) anxiety #20 caps [id number] 1 cap PO Q8H PRN pain #10 caps 02/03/25 50 mg-300 mg-40 mg capsule (Fioricet) ondansetron 4 mg disintegrating 4 mg PO Q8H #20 tabs 02/03/25 tablet albuterol sulfate 90 mcg/actuation 2 puff inhalation Q4H PRN 07/18/25 aerosol inhaler (Ventolin HFA) shortness of breath or wheezing #8.5 grams albuterol sulfate 90 mcg/actuation 2 puff inhalation Q4H PRN 07/19/25 aerosol inhaler (Ventolin HFA) shortness of breath or wheezing #8.5 grams azithromycin 250 mg tablet See Rx Instructions PO .COMPLEX #6 07/19/25 tabs prednisone 20 mg tablet See Taper PO BID 3 days #6 tabs 09/07/25 Allergies Allergy/AdvReac Type Severity Reaction Status Date / Time adhesive tape Allergy Severe Hives Verified 09/07/25 12:14 cefixime Allergy Severe Rash Verified 09/07/25 12:14 guaifenesin (From Mucinex) Allergy Severe throat Verified 09/07/25 12:14 swelling hydrocodone Allergy Severe Rash Verified 09/07/25 12:14 Penicillins Allergy Severe Rash Verified 09/07/25 12:14 prochlorperazine edisylate Allergy Severe STATES Verified 09/07/25 12:14 ALMOST HAVING SEIZURES promethazine HCl Allergy Severe STATES Verified 09/07/25 12:14 ALMOST HAD SEIZURE tramadol Allergy Severe Hives Verified 09/07/25 12:14 codeine Allergy Intermediate Rash Verified 09/07/25 12:14 metoclopramide AdvReac Severe Seizure Verified 09/07/25 12:14 Review of Systems Review of Systems Narrative Review of Systems: GEN: No fever, no chills, no weight loss EYES: No discharge, no visual changes, no pain HEENT: No ear pain, no congestion, no sore throat PULM: No shortness of breath, no cough, no congestion CV: No chest pain, no dyspnea on exertion, no palpitations GI: No nausea, no vomiting, no diarrhea, no pain, no constipation : No frequency, no urgency, no dysuria MUSC/SKEL: No joint pain, no back pain SKIN: No rash PSYCH: No hallucinations, no depression HEME/LYMPH: No easy bleeding or bruising tendencies NEURO: No weakness, no headache Past Medical History Past Medical History NEUROLOGIC: Positive Neurological Disorders, Seizures, Peripheral Neuropathy and Migraine; Negative Cerebrovascular Accident, Transient Ischemic Attacks (TIA), Dementia, Alzheimer's Disease, Parkinson's Disease, Brain Tumor, Meningitis, Epilepsy, Cerebral Palsy, Amyotrophic Lateral Sclerosis (ALS/Allison Gehrig's), Guillain-[place] Syndrome, Spina Bifida, Paralysis, Reyes's Palsy, Subdural Hematoma, Head Trauma, Spinal Cord Injury or Traumatic Brain Injury CARDIAC: Positive Cardiac Disorders and Hypertension; Negative Myocardial Infarction, Cardiac Arrhythmia, Atrial Fibrillation, Angina, Heart Murmur, Coronary Artery Disease, Atherosclerotic Heart Disease, Peripheral Vascular Disease, Hypercholesterolemia, Aneurysm, Congestive Heart Failure, Congenital Heart Disease, Valvular Heart Disease, Rheumatic Fever, Cardiomyopathy, Edema, Pericarditis, Cellulitis, Deep Vein Thrombosis, Hypotension or Varicose Veins RESPIRATORY: Positive Asthma, Bronchitis, Pneumonia and Pulmonary Embolism; Negative Chronic Obstructive Pulmonary Disease (COPD), Emphysema, Pulmonary Fibrosis, Cystic Fibrosis, Tuberculosis, Pulmonary Edema or Sleep Apnea GASTROINTESTINAL: Positive Gastrointestinal Disorders, Colitis, Hiatal Hernia, Hemorrhoids, Gastroesophageal Reflux Disease and Obesity; Negative Hepatitis, Cirrhosis, Pancreatitis, Celiac Disease, Gall Bladder Disease, Gastrointestinal Bleed, Esophageal Varices, King's Esophagus, Ulcerative Colitis, Diverticulitis, Diverticulosis, Ulcer, Colorectal Cancer, Irritable Bowel, Crohn's Disease or Obstructive Bowel GENITOURINARY: Positive Genitourinary Disorders; Negative Renal Disease, Kidney Stones, Polycystic Kidney Disease, Neurogenic Bladder, Inguinal Hernia, Dialysis or Benign Prostatic Hyperplasia REPRODUCTIVE: Positive Endometriosis and Previous Pregnancies; Negative Breast Cancer, Genital Herpes, Gonorrhea, Pelvic Inflammatory Disease, Syphilis or Uterine Prolapse MUSCULOSKELETAL: Positive Musculoskeletal Disorders, Carpal Tunnel Syndrome and Fractures; Negative Muscular Dystrophy, Myasthenia Gravis, Marfan's Syndrome, Bone Cancer, Arthritis, Rheumatoid Arthritis, Osteoporosis, Degenerative Disk Disease, Gout, Scoliosis, Fibromyalgia, Degenerative Joint Disease, Osteomyelitis or Poliovirus ENT: Negative Cataracts, Glaucoma, Blind, Retinal Detachment, Macular Degeneration, Ear Infection, Deafness, Head Trauma or Eye Prosthesis ENDOCRINE: Positive Endocrine Disorders, Diabetes Mellitus Type 2 and Hypoglycemia; Negative Diabetes Mellitus Type 1, [place]'s Syndrome, [place]'s Disease, Hyperthyroidism, Hypothyroidism, Parathyroid Disease, Pituitary Disease, Systemic Lupus Erythematosus, Syndrome of Inappropriate Antidiuretic Hormone (SIADH), Adrenal Disease or Graves' Disease HEMATOLOGIC: Positive Clotting Problems; Negative Blood Disorders, Anemia, Leukemia, Hemophilia, Thalassemia or Sickle Cell Disease PSYCHO/SOCIAL: Positive Depression, Anxiety and Post Traumatic Stress Disorder; Negative Psychiatric Problems, Schizophrenia, Recreational Drug Use, Bipolar Disorder, Behavior Problems, Self-Mutilation, Attention Deficit Disorder, Attention Deficit Hyperactivity Disorder, Depression or Eating Disorder OTHER HISTORY: Positive Hospitalization, Falls and Chicken Pox; Negative Autoimmune Disease, Down Syndrome, Autism, Developmental Delay, Shingles, Blood Transfusions, Blood Transfusion Reaction, Anesthesia Reactions, Organ Transplant, Chemotherapy, Radiation Therapy, Hyperbaric Therapy, MRSA, VRSA, Vancomycin-Resistant Enterococci, Human Immunodeficiency Virus (HIV), Measles, Mumps, Rubella (Monegasque Measles), Pertussis, Clostridium Difficile, Cancer, Breast Cancer, Cervical Cancer, Colorectal Cancer, Lung Cancer or Ovarian Cancer Family History FAMILY HISTORY: Positive Family Psychiatric Problems and Family Respiratory Disorders; Negative Family Cardiac Disorders, Family Gastrointestinal Problems, Family Cancer, Family Surgery or Family Anesthesia Reaction Surgical History SURGICAL: Positive Eye Surgery, Oral Surgery, Abdominal Surgery, Hysterectomy, Tubal Ligation and Section; Negative Cardiac Surgery, Open Heart Surgery, Coronary Artery Bypass Graft, Valve Replacement, Vascular Surgery, Coronary Stent, Cardiac Catheterization, Pacemaker, Angiogram, Auto Implanted Cardiovert Defib, Carotid Endarterectomy, Endocrine Surgery, Thyroidectomy, Ear Surgery, Tympanostomy Tube, Nose Surgery, Tonsillectomy, Adenoidectomy, Cochlear Implant, Corneal Transplant, Throat Surgery, Tracheostomy, Gastric Bypass Surgery, Gastrostomy, Bowel Surgery, Nephrectomy, Transurethral Resection, Joint Replacement, Amputation, Open Reduction Internal Fixation, Arthroscopy, Neurologic Surgery, Brain Shunt, Mastectomy, Lumpectomy, Vasectomy or Organ Transplant Social History SMOKING STATUS: Never smoker SECOND HAND EXPOSURE: No SUBSTANCE USE: marijuana ED Exam Narrative Physical exam: [General: Obese not in any acute distress. No facial expressions indicating pain. Vital signs are stable. Head normocephalic HEENT: Within acceptable limits Neck is supple nontender Chest equal chest rise nontender to palpation Respiratory: Clear to auscultation no wheezes crackles or rubs CV: Rate rhythm is regular no murmurs rubs or clicks Abdomen is distended secondary to body habitus soft nontender no masses positive bowel sounds all 4 quadrants Back: No CVA tenderness no spinous process tenderness from cervical spine thoracic and lumbar spine Skin: Intact no petechiae rash induration ulceration or crepitus Extremities: Burning sensation exaggerated with palpation to the lateral aspect of the thigh. No reproduction of pain with hamstring palpation. moving all extremities against resistance cap refill less than 2 seconds neurosensory intact. Observed ambulating without limp stoop or complication. Neuro: Awake alert oriented x3 Glascow coma 15 no focal deficits] Course Course Course Narrative: I am no acute finding for this this may be just random paresthesias we will start the patient some steroids to see if this helps. Quality Measures none Orders Category Date Time Status CBC Stat Lab 09/07/25 12:49 Completed CMP [Comprehensive Metabolic Panel] Stat Lab 09/07/25 12:49 Completed Creatine Kinase Stat Lab 09/07/25 12:49 Completed Drug Screen,Urine Stat Lab 09/07/25 13:00 Received Urinalysis Stat Lab 09/07/25 13:00 Completed Vital Signs Vital signs: Vital Signs Temperature 97.8 F 09/07/25 12:29 Pulse Rate 91 09/07/25 12:29 Respiratory Rate 17 09/07/25 12:29 Blood Pressure 139/85 H 09/07/25 12:29 Pulse Oximetry (%) 98 09/07/25 12:29 Oxygen Delivery Method Room Air 09/07/25 12:29 Discharge Plan Plan Patient Disposition: HOME (Self Care) Patient condition on transfer: Stable Prescriptions/Referrals Prescriptions/Med Rec: New prednisone 20 mg tablet See Taper PO BID 3 Days Qty: 6 0RF Taper: Prednisone Taper 20 mg DAILY for 2 Days and 0 Hour 10 mg DAILY for 2 Days and 0 Hour 5 mg DAILY for 7 Days and 0 Hour No Action ibuprofen 800 mg tablet 800 mg PO TID PRN (Reason: pain) Qty: 30 0RF sumatriptan succinate 100 mg tablet 100 mg PO QDAY PRN (Reason: Headache) amlodipine 5 mg Tablet 5 mg PO QDAY albuterol sulfate 90 mcg/actuation Hfa Aerosol Inhaler 2 puff INHALATION Q4H PRN (Reason: SOB) insulin lispro [Admelog SoloStar U-100 Insulin] 100 unit/mL Insulin Pen 40 unit SUBCUT TID lamotrigine 25 mg tablet 25 tab PO QDAY Patient Comments: TAKE 1 TABLET BY MOUTH EVERY DAY baclofen 20 mg Tablet 20 mg PO BID mirtazapine 15 mg Tablet 15 mg PO HS escitalopram oxalate [Lexapro] 20 mg Tablet 40 mg PO QDAY Insulin Glargine [Basaglar Kwikpen U-100 Insulin] 80 unit subcut QAM 30 Days Qty: 2400 1RF cetirizine 10 mg tablet 1 tab PO QDAY gabapentin 800 mg tablet 800 mg PO TID omeprazole 20 mg capsule,delayed release(DR/EC) 1 cap PO BID Patient Comments: TAKE 1 CAPSULE BY MOUTH TWICE A DAY insulin glargine [Basaglar KwikPen U-100 Insulin] 100 unit/mL (3 mL) insulin pen 1 ea SUBCUT HS Rx Instructions: 57 UNITS AT NIGHT cephalexin 500 mg capsule 500 mg PO QID Qty: 21 0RF Rx Instructions: Patient has been on cephalexin in the past. hydroxyzine pamoate [Vistaril] 25 mg capsule 50 mg PO BID PRN (Reason: anxiety) Qty: 20 0RF [id number] [Fioricet] 50-300-40 mg capsule 1 cap PO Q8H PRN (Reason: pain) Qty: 10 0RF ondansetron 4 mg tablet,disintegrating 4 mg PO Q8H Qty: 20 0RF albuterol sulfate [Ventolin HFA] 90 mcg/actuation HFA aerosol inhaler 2 puff inhalation Q4H PRN (Reason: shortness of breath or wheezing) Qty: 8.5 0RF azithromycin 250 mg tablet See Rx Instructions .ROUTE .COMPLEX Qty: 6 0RF Rx Instructions: For 250 mg dose pack: take 500 mg today (day 1), then 250 mg for 4 days (days 2-5) albuterol sulfate [Ventolin HFA] 90 mcg/actuation HFA aerosol inhaler 2 puff inhalation Q4H PRN (Reason: shortness of breath or wheezing) Qty: 8.5 0RF Referrals: No Primary/Family,Physician [Primary Care Provider] - In 1 week Problem List Clinical Impression: Leg pain Patient/Caregiver Discharge Instructions Other Activity Instructions:: Take the steroids and see if this helps decrease the pain otherwise follow-up with your primary care doctor. Education Materials: Understanding the Pain Response Print Language: Croatian Stand Alone Forms: [employer] Award Info., Patient Portal Info Letter, Work/School Release MAGDA/PEE Supervising Physician DES Supervising Physician: Chad Evans ENP MDM Clinical Information Provided by: patient Medical Records reviewed [facility] Meds/Rx considered, not ordered None Labs/Rad/Tests considered, not ordered None Chronic Illness/Social Conditions which may negatively complicate care or outcome(s)-explain: None or not applicable EKG EKG not done Labs Labs: interpreted by [place] Lab(s) Interpretation(s): CBC shows no acute leukocytosis anemia thrombocytopenia CMP shows no significant electrolyte imbalances renal impairment transaminitis or T. bili elevation Creatinine kinase is negative Urine is unremarkable. Imaging Imaging interpretation: none
[2025-09-07 13:06] LABS: Basophils # (Auto) 0.0 Thou/mm3 (0.0-0.2); Basophils % (Auto) 0 % (0-2.5); Eosinophils # (Auto) 0.0 Thou/mm3 (0.0-0.5); Eosinophils % (Auto) 0 % (0-10); Hematocrit 43.1 % (36.0-46.0); Hemoglobin 14.5 g/dL (12.0-16.0); Immature Granulocytes Auto 0.03 Thou/mm3 (0.00-0.00); Lymphocytes # (Auto) 2.1 Thou/mm3 (1.0-4.8); Lymphocytes % (Auto) 23 % (10-50); Mean Corpuscular HGB Conc 33.6 g/dl (31.0-37.0); Mean Corpuscular Hemoglobin 27.5 pg (25.0-35.0); Mean Corpuscular Volume 82 fL (80-100); Monocytes # (Auto) 0.7 Thou/mm3 (0.0-0.8); Monocytes % (Auto) 8 % (0-12); Neutrophils # (Auto) 6.3 Thou/mm3 (1.8-7.7); Neutrophils % (Auto) 69 % (37-80); Nucleated Red Blood Cell # 0.00 Thou/mm3 (0.00-0.00); Nucleated Red Blood Cell % 0 /100 WBC (0); Platelet Count 277 Thou/mm3 (140-440); RDW Standard Deviation 40.5 fL (36.4-46.3); Red Blood Count 5.27 Miln/mm3 (4.00-5.20); White Blood Count 9.1 Thou/mm3 (3.6-11.0)
[2025-09-07 13:10] LABS: Collection Type, Urine Clean Catch; RBC,Urine 0 /hpf (0-3)
[2025-09-07 13:20] LABS: Bacteria,Urine Rare; Bilirubin,Urine Negative (Negative); Blood,Urine Negative (Negative); Clarity,Urine Turbid (Clear/Hazy); Color,Urine Yellow (Lt Yel-Yel); Glucose, Urine 3+ (Negative); Ketones,Urine Negative (Negative); Leukocyte Esterase,Urine Positive (Negative); Nitrite,Urine Negative (Negative); PH,Urine 7.0 (5.0-7.0); Protein,Urine Trace (Neg - Trace); Specific Gravity,Urine 1.023 (1.001-1.035); Squamous Epithelial Cell,Urine 16 /hpf (0-5); Urobilinogen,Urine Negative mg/dL (0.0-1.0); WBC,Urine 4 /hpf (0-5)
[2025-09-07 13:25] LABS: Alanine Aminotransferase 18 U/L (10-49); Albumin, Serum 5.2 gm/dL (3.5-5.0); Albumin/Globulin Ratio 1.7 (1.2-2.2); Alkaline Phosphatase 87 U/L (46-116); Anion Gap 9 (7-16); Aspartate Amino Transferase 19 U/L (0-34); BUN/Creatinine Ratio 7 Ratio (12-20); Bilirubin,Total 0.7 mg/dL (0.3-1.2); Blood Urea Nitrogen 6 mg/dL (9-23); Calcium 9.9 mg/dL (8.3-10.6); Calcium (Corrected) 9.9 mg/dL (8.5-10.1); Carbon Dioxide 31.1 mMol/L (20.0-31.0); Chloride 105 mMol/L (98-107); Creatine Kinase 38 U/L (34-171); Creatinine (Component) 0.9 mg/dL (0.6-1.3); Estimated Creatinine Clearance 108.6 mL/min (>60); Globulin 3.1 gm/dL (2.3-3.5); Glucose 186 mg/dL (74-106); Osmolality,Calculated 291 (275-295); Potassium 4.2 mMol/L (3.4-5.1); Sodium 145 mMol/L (136-145); Total Protein 8.3 gm/dL (5.7-8.2); eGFR > 60 See Note
[2025-09-07 13:42] LABS: Amphetamine/Methamp Scrn,U Negative (Negative); Barbiturate Screen,Urine Negative (Negative); Benzodiazepines Screen,Urine Negative (Negative); Benzoylecgonine Screen, Ur Negative (Negative); Fentanyl Screen,Urine Negative (Negative); Opiate Screen,Urine Negative (Negative); THC Screen,Urine Negative (Negative)
== END 2025-09-07 14:23 | disposition home or self-care (01) ==
PROVIDERS: Registered Nurse General Practice; Emergency Provider Family Medicine
DX: M79.605 Pain in left leg (principal); M79.604 Pain in right leg
CPT/HCPCS: 36415; 80053; 80307; 81001; 82550; 85025; 99282